=== PATIENT | male | born 1970 | race Caucasian/White ===

== ENCOUNTER 2017-04-27 14:42 | Inpatient (IN) | payer BC ==
[~2017-04-27] VITALS: Ht 165.1 cm; Wt 62.3 kg
[~2017-04-27 14:42] MED LIST: ALBU18HF INHALATION; ALBU2.5V3 NEB; AMLO-147 PO; BECL8.7A INH; IPRA3AMP HHN; LEVO500T72 PO; MED4DP PO; MONT10TA21 PO; PANT40TA3 PO; QVAR ORAL; TIOT18CA INHALATION
--- NOTE | 2017-04-27 14:58 | ERA ---
ER Documentation Chief Complaint Date/Time DATE: 04/27/17 TIME: 14:58 Chief Complaint Shortness of breath HPI The patient is a 46-year-old male, presenting to the ER because of acute shortness of breath, worse today, associated with cough and blood-tinged sputum. He denies fever, chills, neck pain, chest pain, abdominal pain, vomiting, dysuria, diarrhea. He does not smoke nor drink he does use supplemental oxygen 2-1/2 L as needed during the daytime and at night to sleep Past medical history: Asthma, COPD, hypertension Past surgical history: None ROS All systems reviewed and are negative except as per history of present illness. Medications Home Meds Active Scripts Albuterol Sulfate* (Albuterol Sulfate* Neb) 0.083%-3 Ml Neb, 2.5 MG NEB Q4H, # 30 VIAL Prov:ROMY MARAVILLA MD 10/24/16 Albuterol Sulfate* (Ventolin HFA*) 18 Gm Hfa.aer.ad, 2 PUFF INHALATION Q6H for 14 Days, #1 INHALER Prov:ROMY MARAVILLA MD 07/30/16 Reported Medications Mometasone-Formoterol (Dulera) 100-5 Mcg - 13 Gm Hfa.aer.ad, 2 PUFFS INHALATION BID, #1 INHALER 04/27/17 Amlodipine Besylate* (Amlodipine Besylate*) 10 Mg Tablet, 10 MG PO DAILY, #30 TAB 03/20/16 Tiotropium [place]* (Spiriva*) 18 Mcg Cap.w.dev, 1 CAP INHALATION BID, #30 CAP 03/20/16 Montelukast Sodium* (Singulair*) 10 Mg Tablet, 10 MG PO QHS, #30 TAB 03/20/16 Discontinued Scripts Methylprednisolone* (Medrol* DOSE PACK) 4 Mg/Dose-Pack Tab.ds.pk, 4 MG PO . DIRECTED for 14 Days, PACKET Prov:ROMY MARAVILLA MD 10/24/16 Levofloxacin* (Levaquin*) 500 Mg Tablet, 500 MG PO DAILY for 7 Days, TAB Prov:ROMY MARAVILLA MD 10/24/16 Beclomethasone Dip* (Qvar 40*) 7.3 Gm Inha, 2 PUFF INH BID, #1 INHALER Prov:ROMY MARAVILLA MD 07/30/16 Ipratropium-Albuterol (Ipratropium-Albuterol) 0.5-3 Mg/3 Ml Ampul.neb, 3 ML HHN Q6H RESP THERAPY for 28 Days Prov:ROMY MARAVILLA MD 07/30/16 [[id number]] 80 mcg No Conflict Check, 2 PUFF ORAL BID for 30 Days Prov:ROMY MARAVILLA MD 07/30/16 Pantoprazole* (Protonix*) 40 Mg Tablet.dr, 40 MG PO DAILY for 14 Days, TAB Prov:ROMY MARAVILLA MD 03/22/16 Ipratropium-Albuterol (Ipratropium-Albuterol) 0.5-3 Mg/3 Ml Ampul.neb, 3 ML HHN Q4H RESP THERAPY Y for SHORTNESS OF BREATH for 14 Days Prov:ROMY MARAVILLA MD 03/22/16 Allergies Allergies: Coded Allergies: No Known Allergy (Unverified , 04/27/17) PMhx/Soc History of Surgery: No Anesthesia Reaction: No Hx Neurological Disorder: No Hx Respiratory Disorders: Yes (COPD, asthma as a kid.) Hx Cardiac Disorders: No Hx Psychiatric Problems: No Hx Miscellaneous Medical Probl: No Hx Alcohol Use: Yes (occasional) Hx Substance Use: No Hx Tobacco Use: No Physical Exam Vitals Vital Signs Date Time Temp Pulse Resp B/P Pulse Ox O2 Delivery O2 Flow Rate FiO2 04/27/17 18:39 109 24 117/78 98 Nasal Cannula 6.0 04/27/17 17:02 115 24 126/82 96 Nasal Cannula 2.0 04/27/17 15:24 2.0 04/27/17 15:24 108 20 Nasal Cannula 2.0 04/27/17 15:10 Nasal Cannula 3 04/27/17 14:45 98.3 135 25 162/74 97 Physical Exam Const: No acute distress. Head: Atraumatic. Eyes: Normal Conjunctiva. ENT: Normal External Ears, Nose and Mouth. Neck: Full range of motion. No meningismus. Resp: Bilateral expiratory wheezes, tachypneic Cardio: Regular tachycardic Abd: Soft, non distended, normal bowel sounds, non tender. Skin: No petechiae or rashes. Back: No midline or flank tenderness. Ext: No cyanosis, or edema. Neur: Awake and alert. No focal deficit Psych: Normal Mood and Affect. Result Diagram: 04/27/17 1513 04/27/17 1513 Results 24 hrs Laboratory Tests Test 04/27/17 15:13 White Blood Count 12.110^3/ul Red Blood Count 5.2810^6/ul Hemoglobin 15.9g/dl Hematocrit 49.0% Mean Corpuscular Volume 92.8fl Mean Corpuscular Hemoglobin 30.1pg Mean Corpuscular Hemoglobin Concent 32.4g/dl Red Cell Distribution Width 14.6% Platelet Count 80186^3/UL Mean Platelet Volume 12.2fl Neutrophils % 60.2% Lymphocytes % 17.8% Monocytes % 7.1% Eosinophils % 14.4% Basophils % 0.3% Nucleated Red Blood Cells % 0.0/100WBC Neutrophils # 7.310^3/ul Lymphocytes # 2.210^3/ul Monocytes # 0.910^3/ul Eosinophils # 1.710^3/ul Basophils # 0.010^3/ul Nucleated Red Blood Cells # 0.010^3/ul Prothrombin Time 12.1Sec Prothrombin Time Ratio 0.9 INR International Normalized Ratio 0.90 Activated Partial Thromboplast Time 30.0Sec Sodium Level 139mmol/L Potassium Level 3.6mmol/L Chloride Level 97mmol/L Carbon Dioxide Level 32mmol/L Anion Gap 14 Blood Urea Nitrogen 8mg/dl Creatinine 1.02mg/dl Glucose Level 116mg/dl Lactic Acid Level 2.2mmol/L Calcium Level 9.6mg/dl Total Bilirubin 0.2mg/dl Direct Bilirubin 0.00mg/dl Indirect Bilirubin 0.2mg/dl Aspartate Amino Transf (AST/SGOT) 26IU/L Alanine Aminotransferase (ALT/SGPT) 26IU/L Alkaline Phosphatase 90IU/L Troponin I < 0.012ng/ml Total Protein 8.3g/dl Albumin 4.7g/dl Globulin 3.60g/dl Albumin/Globulin Ratio 1.30 Current Medications Medications (Trade) Dose Ordered Sig/Ramiro Route PRN Reason Start Time Stop Time Status Last Admin Dose Admin Levalbuterol (Xopenex Neb) 3.75 mg ONCE ONCE HHN 04/27/17 15:30 04/27/17 15:31 DC 04/27/17 15:24 Ipratropium [place] (Atrovent 0.02% (Neb)) 1.5 mg ONCE ONCE HHN 04/27/17 15:30 04/27/17 15:31 DC 04/27/17 15:23 Methylprednisolone Sodium Succinate 125 mg 125 mg ONCE ONCE IV 04/27/17 15:30 04/27/17 15:31 DC 04/27/17 15:32 Sodium Chloride 1,860 ml @ 1,860 mls/hr BOLUS X1 ONCE IV 04/27/17 15:30 04/27/17 16:29 DC 04/27/17 15:33 Ceftriaxone Sodium 50 ml @ 100 mls/hr ONCE ONCE IVPB 04/27/17 17:00 04/27/17 17:29 DC 04/27/17 17:02 Azithromycin (Zithromax 500mg/ NS (Pmx)) 250 ml @ 250 mls/hr ONCE ONCE IVPB 04/27/17 17:00 04/27/17 17:59 DC 04/27/17 17:53 Albuterol (Proventil 0.083% (Neb)) 2.5 mg Q4H RESP THERAPY NEB 04/27/17 21:00 04/27/17 21:00 DC Albuterol (Proventil (O.r. Use Only)) 2 puff Q6H INH 04/27/17 18:30 04/27/17 18:30 DC Amlodipine Besylate (Norvasc) 10 mg DAILY PO 04/28/17 09:00 Montelukast Sodium (Singulair) 10 mg QHS PO 04/27/17 21:00 Tiotropium [place] (Spiriva) 1 inh BID INH 04/27/17 21:00 UNV IV Flush (NS 3 ml) 3 ml PER PROTOCOL IV 04/27/17 18:30 Ondansetron HCl (Zofran Inj) 4 mg Q6H PRN IV NAUSEA AND/OR VOMITING 04/27/17 18:30 Acetaminophen (Tylenol Tab) 650 mg Q6H PRN PO PAIN LEVEL 1-3 OR FEVER 04/27/17 18:30 Docusate Sodium (Colace) 100 mg Q12H PRN PO CONSTIPATION 04/27/17 18:30 Magnesium Hydroxide (Milk Of Mag) 30 ml DAILY PRN PO CONSTIPATION 04/27/17 18:30 Pantoprazole (Protonix Tab) 40 mg DAILY@06 PO 04/28/17 06:00 Enoxaparin Sodium (Lovenox) 40 mg DAILY SC 04/28/17 09:00 Methylprednisolone Sodium Succinate (Solu-Medrol) 60 mg Q6 IV 04/28/17 00:00 Albuterol/ Ipratropium 3 ml 3 ml Q6H RESP THERAPY HHN 04/27/17 20:00 Levofloxacin/ Dextrose (Levaquin 500mg/ D5W 100 ml (Pmx)) 100 ml @ 100 mls/hr Q24H IVPB 04/27/17 18:30 04/27/17 18:30 Procedures/MDM [place] [id number] Radiology Main Line: [phone] DIAGNOSTIC IMAGING REPORT Patient: LIA CRUZ : 1970 Age: 46 Sex: M MR #: [id number] DOS: 04/27/17 1502 Ordering MD: KYLAH KELLEY MD Location: E/R Room/Bed: PROCEDURE: Chest Radiograph. CLINICAL INDICATION: Sepsis TECHNIQUE: 2 frontal views of the chest COMPARISON: None available FINDINGS: The cardiomediastinal silhouette is within normal limits. 03 lung is clear there is a suggested left basilar infiltrate. No definite pleural effusion is seen. The bones are intact. IMPRESSION: 1. Left basilar infiltrate, correlate with pneumonia, and follow up to resolution RPTAT: KK .Grayson Paredes MD, MD Date Time Electronically viewed and signed by .Grayson Paredes MD, on 2016 15:57 .B/ CC: KYLAH KELLEY MD EKG: Read by emergency physician Rate/Rhythm: Sinus tachycardia 129 beats/min QRS, ST, T-waves: No ST elevation, no T inversion, PVC, right atrial enlargement Impression: Abnormal EKG MEDICAL MAKING DECISION: The patient is a 46-year-old male, presenting with acute severe sepsis due to acute pneumonia. He was treated with normal saline 30 mL/kg IV, Rocephin IV, Zithromax IV, Ativan 1.5 mg Xopenex 3.375 mg over one hour and Solu-Medrol 125 mg IV with good response. The differential diagnoses considered include but are not limited to COPD exacerbation, asthma exacerbation, pneumonia, pneumothorax, CHF, PE Admit MDM: Patient's infectious symptoms have not stabilized and the patient is at risk of rapid decompensation. The patient will be admitted for careful hydration, antibiotic therapy, and infectious source control. Severe Sepsis criteria: Infectious source: Pneumonia End organ damage indicated by: Lactate > 2.0 mmol/L Sepsis Management: Time of recognition of severe sepsis/septic shock:15:30 hr Within 3 hours of recognition: Blood cultures x 2 before broad-spectrum antibiotics: Yes 30 ml/kg NS bolus completed Initial lactate 2.2 Repeat lactate pending Critical Care: Critical care time 35 minutes Emergent fluid management while maintaining close respiratory support. Provision of immediate and broad-spectrum antibiotic therapy. Simultaneous assessment for possible sources in order to direct targeted therapy. Consideration for invasive and chemical support to prevent cardiopulmonary collapse. Septic Shock Assessment: Any lactic acid > 4.0 no Persistent hypotension (SBP < 90 or 40 mmHg drop, MAP < 65) despite 30 mL/kg IV fluid bolusno Departure Diagnosis: Primary Impression: Severe sepsis Additional Impression: Pneumonia Condition: Stable Comments I discussed the findings with the patient. I discussed the patient with his physician Dr. Maravilla who was made aware of the lab, the treatment, the patient condition. The patient is admitted to telemetry at 5:40 pm KYLAH KELLEY MD Apr 27, 2017 14:58
[2017-04-27] MEDS ORDERED: MOME13HF2 INHALATION (15:24)
[2017-04-27] MEDS ORDERED: SOD CHLORIDE 0.9% 1,860 ML IV ONE (15:30)
[2017-04-27] MEDS ORDERED: LEVALBUTEROL (NEB) 1.25 MG/0.5 ML AMP HHN ONE (15:30)
[2017-04-27] MEDS ORDERED: IPRATROPIUM (NEB) 0.5 MG/2.5 ML AMP HHN ONE (15:30)
[2017-04-27] MEDS ORDERED: METHYLPREDNISOLONE 125 MG INJ IV ONE (15:30)
[2017-04-27 15:48] LABS: ADD SCAN DIFF NO
[2017-04-27 15:50] LABS: BASOPHILS % 0.3 % (0.0-2.0); EOSINOPHILS # 1.7 10^3/ul (0.0-0.5); EOSINOPHILS % 14.4 % (0.0-7.0); HEMOGLOBIN 15.9 g/dl (14.0-18.0); LYMPHOCYTES # 2.2 10^3/ul (0.8-2.9); LYMPHOCYTES % 17.8 % (15.0-51.0); MEAN CORPUSCULAR HEMOGLOBIN 30.1 pg (29.0-33.0); MEAN CORPUSCULAR HGB CONC 32.4 g/dl (32.0-37.0); MEAN CORPUSCULAR VOLUME 92.8 fl (82.0-101.0); MEAN PLATELET VOLUME 12.2 fl (7.4-10.4); MONOCYTE # 0.9 10^3/ul (0.3-0.9); MONOCYTES % 7.1 % (0.0-11.0); NEUTROPHIL # 7.3 10^3/ul (1.6-7.5); NEUTROPHILS % 60.2 % (39.0-77.0); PLATELET COUNT 211 10^3/UL (140-415); RED BLOOD COUNT 5.28 10^6/ul (4.70-6.10); RED CELL DISTRIBUTION WIDTH 14.6 % (11.5-14.5); WHITE BLOOD COUNT 12.1 10^3/ul (4.8-10.8)
--- NOTE | 2017-04-27 15:57 | RADRPT ---
PROCEDURE: Chest Radiograph. CLINICAL INDICATION: Sepsis TECHNIQUE: 2 frontal views of the chest COMPARISON: None available FINDINGS: The cardiomediastinal silhouette is within normal limits. 03 lung is clear there is a suggested lef t basilar infiltrate. No definite pleural effusion is seen. The bones are intact. IMPRESSION: 1. Left basilar infiltrate, correlate with pneumonia, and follow up to resolution RPTAT: KK .Grayson Paredes MD, MD Date Time Electronically viewed and signed by .Grayson Paredes MD, on 04/27/2017 15:57 .B/
[2017-04-27 16:05] LABS: INR 0.9; PROTIME 12.1 Sec (12.2-14.2); PT RATIO 0.9
[2017-04-27 16:10] LABS: ALANINE AMINOTRANSFERASE 26 IU/L (13-69); ALBUMIN 4.7 g/dl (3.3-4.9); ALKALINE PHOSPHATASE 90 IU/L (42-121); ANION GAP 14 (8-16); ASPARTATE AMINO TRANSFERASE 26 IU/L (15-46); BILIRUBIN,INDIRECT 0.2 mg/dl (0-1.1); BILIRUBIN,TOTAL 0.2 mg/dl (0.2-1.3); BLOOD UREA NITROGEN 8 mg/dl (7-20); CALCIUM 9.6 mg/dl (8.4-10.2); CARBON DIOXIDE 32 mmol/L (21-31); CHLORIDE 97 mmol/L (97-110); CREATININE 1.02 mg/dl (0.61-1.24); GLUCOSE 116 mg/dl (70-220); POTASSIUM 3.6 mmol/L (3.5-5.1); SODIUM 139 mmol/L (135-144); TOTAL PROTEIN 8.3 g/dl (6.1-8.1)
[2017-04-27 16:27] LABS: TROPONIN-I < 0.012 ng/ml (0.00-0.12)
[2017-04-27] MEDS ORDERED: AZITHROMYCIN 500MG/NS (PMX) 250 ML IVPB ONE (17:00)
[2017-04-27] MEDS ORDERED: CEFTRIAXONE 1 GM/50 ML (PMX) 50 ML IVPB ONE (17:00)
[2017-04-27] MEDS ORDERED: NACL 0.9% 3 ML SYG IV SCH (18:30)
[2017-04-27] MEDS ORDERED: DOCUSATE SODIUM 100 MG CAP PO PRN (18:30)
[2017-04-27] MEDS ORDERED: MAGNESIUM HYDROXIDE 30ML CUP PO PRN (18:30)
[2017-04-27] MEDS ORDERED: PROVENTIL HFA 6.7GM INHALER INH SCH (18:30)
[2017-04-27] MEDS: LEVOFLOXACIN 500MG/D5W (PMX) 100 ML IVPB SCH (18:30)
[2017-04-27] MEDS ORDERED: ONDANSETRON 4 MG INJ IV PRN (18:30)
[2017-04-27] MEDS ORDERED: ACETAMINOPHEN 325 MG TAB PO PRN (18:30)
[2017-04-27] MEDS: ALBUTEROL/IPRATROPIUM (NEB) 3 ML AMP HHN SCH (20:47)
[2017-04-27] MEDS ORDERED: ALBUTEROL 0.083% (NEB) 2.5 MG/3 ML AMP NEB SCH (21:00)
[2017-04-27] MEDS: TIOTROPIUM 18 MCG CAPSULE INHA DEV INH SCH (22:04)
[2017-04-27] MEDS: MONTELUKAST 10 MG TAB PO SCH (22:11)
[2017-04-27] MEDS: METHYLPREDNISOLONE 125 MG INJ IV SCH (23:20)
--- NOTE | 2017-04-27 23:32 | QN ---
Documentation Comment [id number] ROMY MARAVILLA MD Apr 27, 2017 23:32
[2017-04-28] VITALS (8 sets, daily range): BP systolic 115–137; BP diastolic 64–79; PULSE 80–100; RESP 17–20; TEMP 99; Ht 165.1 cm; Wt 62.3 kg
[2017-04-28] MEDS: ALBUTEROL/IPRATROPIUM (NEB) 3 ML AMP HHN SCH ×4 (01:36→20:56)
[2017-04-28] MEDS ORDERED: SOD CHLORIDE 0.9% 1,000 ML IV ONE (02:00)
[2017-04-28] MEDS: SOD CHLORIDE 0.9% 1,000 ML IV SCH ×3 (03:00→23:00)
[2017-04-28] MEDS: METHYLPREDNISOLONE 125 MG INJ IV SCH ×3 (05:57→17:55)
[2017-04-28] MEDS: PANTOPRAZOLE (EC) 40 MG TAB PO SCH (05:57)
--- NOTE | 2017-04-28 07:27 | HP ---
DATE OF ADMISSION: 04/27/2017 HISTORY OF PRESENT ILLNESS: Armen Hutchison is a 46-year-old male with history of asthma exacerbation, COPD, presented with shortness of breath, cough. He was seen in the ER and noted to have cough, lung congestion and patient is being admitted for further management. PAST MEDICAL HISTORY: COPD, bronchial asthma. Patient has hypertension. ALLERGY HISTORY: NEGATIVE. FAMILY HISTORY: Negative. SOCIAL HISTORY: Negative. MEDICATIONS AT HOME: 1. Albuterol. 2. Amlodipine. 3. hhn 4. Singulair. 5. Spiriva. REVIEW OF HEENT: Unremarkable. RESPIRATORY: Shortness of breath, cough, wheezing. CARDIOVASCULAR: No chest pain. . ABDOMEN: Dyspepsia. EXTREMITIES: . CENTRAL NERVOUS SYSTEM: Unremarkable. PHYSICAL EXAMINATION: GENERAL: The patient is awake, alert. VITAL SIGNS: Pulse normal, _ blood pressure see flow sheet. HEAD: Atraumatic, normocephalic. Pupils equal, reactive to light. NECK: Supple. No JVD. LUNGS: Rhonchi and wheezes noted, some crepitation at bases. CARDIOVASCULAR: S1, S2 normal. ABDOMEN: Soft. Bowel sounds present. No palpable mass. EXTREMITIES: No cyanosis, clubbing, or edema. CENTRAL NERVOUS SYSTEM: The patient is awake, alert, no focal deficit. LABORATORY DATA: WBC 12.1. The patient had a chest x-ray done, shows left basilar infiltrate. IMPRESSION: 1. The patient has ba execerbation 2. Chronic obstructive pulmonary disease exacerbation. 3. lung infiltrate. 4. Leukocytosis. PLAN: Continue oxygen, bronchodilator and antibiotics and _ orders were done. Dictated By: ROMY CARMEN/NTS Conf#: [id number] DID#: [id number] MTDD
[2017-04-28] MEDS: ENOXAPARIN 40 MG/0.4 ML SYG SC SCH (11:00)
[2017-04-28] MEDS: AMLODIPINE 10 MG TAB PO SCH (11:29)
[2017-04-28] MEDS: TIOTROPIUM 18 MCG CAPSULE INHA DEV INH SCH ×2 (11:31→21:21)
[2017-04-28] MEDS: LEVOFLOXACIN 500MG/D5W (PMX) 100 ML IVPB SCH (17:56)
[2017-04-28] MEDS: MONTELUKAST 10 MG TAB PO SCH (21:20)
--- NOTE | 2017-04-28 22:50 | PN ---
Date/Time of Note Date/Time of Note DATE: 04/28/17 TIME: 22:49 Assessment/Plan VTE Prophylaxis VTE Prophylaxis Intervention: other Lines/Catheters Urinary Cath still in place: No Assessment/Plan Chief Complaint/Hosp Course IMPRESSION: 1. The patient has ba execerbation 2. Chronic obstructive pulmonary disease exacerbation. 3. lung infiltrate. 4. Leukocytosis. 5 lactic adidosis plan hhn Problems: Subjective 24 Hr Interval Summary Respiratory: shortness of breath (less) Cardiovascular: no complaints Gastrointestinal: no complaints Exam/Review of Systems Vital Signs Vitals Vital Signs Date Time Temp Pulse Resp B/P Pulse Ox O2 Delivery O2 Flow Rate FiO2 04/28/17 20:59 92 18 95 Nasal Cannula 2.0 28 04/28/17 20:00 98.0 115/64 Intake and Output 04/27/17 04/27/17 04/28/17 15:00 23:00 07:00 Intake Total 300 ml Balance 300 ml Exam Neck: supple Respiratory: clear to auscultation Cardiovascular: regular rate and rhythm Gastrointestinal: nl liver, spleen, non-tender, soft Extremities: edema Results Result Diagram: 04/27/17 1513 04/27/17 1513 Results 24 hrs Laboratory Tests Test 04/27/17 23:56 Lactic Acid Level 5.4 *H Medications Medications Current Medications Amlodipine Besylate (Norvasc) 10 mg DAILY PO Last administered on 04/28/17 11: 29; Admin Dose 10 MG; Start 04/28/17 at 09:00 Montelukast Sodium (Singulair) 10 mg QHS PO Last administered on 04/28/17 21: 20; Admin Dose 10 MG; Start 04/27/17 at 21:00 Tiotropium [place] (Spiriva) 1 inh BID INH Last administered on 04/28/17 21:21 ; Admin Dose 1 INH; Start 04/27/17 at 21:00 Ondansetron HCl (Zofran Inj) 4 mg Q6H PRN IV NAUSEA AND/OR VOMITING; Start at 18:30 Acetaminophen (Tylenol Tab) 650 mg Q6H PRN PO PAIN LEVEL 1-3 OR FEVER; Start at 18:30 Docusate Sodium (Colace) 100 mg Q12H PRN PO CONSTIPATION; Start 04/27/17 at 18: 30 Magnesium Hydroxide (Milk Of Mag) 30 ml DAILY PRN PO CONSTIPATION; Start at 18:30 Pantoprazole (Protonix Tab) 40 mg DAILY@06 PO Last administered on 04/28/17 05 :57; Admin Dose 40 MG; Start 04/28/17 at 06:00 Enoxaparin Sodium (Lovenox) 40 mg DAILY SC ; Start 04/28/17 at 09:00 Methylprednisolone Sodium Succinate 60 mg 60 mg Q6 IV Last administered on 04/28 17:55; Admin Dose 60 MG; Start 04/28/17 at 00:00 Levofloxacin/ Dextrose 100 ml @ 100 mls/hr Q24H IVPB Last administered on 04/28 17:56; Admin Dose 100 MLS/HR; Start 04/27/17 at 18:30 Sodium Chloride (NS) 1,000 ml @ 125 mls/hr Q8H IV Last administered on 11:36; Admin Dose 125 MLS/HR; Start 04/28/17 at 03:00 ROMY MARAVILLA MD Apr 28, 2017 22:50
[2017-04-29] VITALS (12 sets, daily range): BP systolic 108–136; BP diastolic 57–92; PULSE 76–108; RESP 18–21
[2017-04-29] MEDS: METHYLPREDNISOLONE 125 MG INJ IV SCH ×5 (00:07→23:25)
[2017-04-29] MEDS: ZOLPIDEM 5 MG TAB PO PRN ×2 (00:07→23:24)
[2017-04-29] MEDS: ALBUTEROL/IPRATROPIUM (NEB) 3 ML AMP HHN SCH ×4 (02:17→19:35)
[2017-04-29] MEDS: SOD CHLORIDE 0.9% 1,000 ML IV SCH ×3 (03:00→19:00)
[2017-04-29] MEDS: PANTOPRAZOLE (EC) 40 MG TAB PO SCH (05:24)
[2017-04-29] MEDS: ENOXAPARIN 40 MG/0.4 ML SYG SC SCH (07:51)
[2017-04-29] MEDS: TIOTROPIUM 18 MCG CAPSULE INHA DEV INH SCH ×2 (07:53→21:30)
[2017-04-29] MEDS: AMLODIPINE 10 MG TAB PO SCH (07:54)
[2017-04-29] MEDS ORDERED: HYDROCODONE/APAP (5/325) TAB PO PRN (12:00)
[2017-04-29] MEDS: LEVOFLOXACIN 500MG/D5W (PMX) 100 ML IVPB SCH (17:23)
[2017-04-29] MEDS: MONTELUKAST 10 MG TAB PO SCH (20:52)
--- NOTE | 2017-04-29 23:32 | PN ---
Date/Time of Note Date/Time of Note DATE: 04/29/17 TIME: 23:31 Assessment/Plan VTE Prophylaxis VTE Prophylaxis Intervention: other Lines/Catheters IV Catheter Type (from Nrs): Peripheral IV Urinary Cath still in place: No Assessment/Plan Chief Complaint/Hosp Course IMPRESSION: 1. The patient has ba execerbation 2. Chronic obstructive pulmonary disease exacerbation. 3. lung infiltrate. 4. Leukocytosis. 5 lactic adidosis plan hhn antibiotic Problems: Subjective 24 Hr Interval Summary Respiratory: shortness of breath (better) Exam/Review of Systems Vital Signs Vitals Vital Signs Date Time Temp Pulse Resp B/P Pulse Ox O2 Delivery O2 Flow Rate FiO2 04/29/17 20:17 98.2 114 21 133/92 96 04/29/17 20:10 Nasal Cannula 2.0 04/29/17 02:52 28 Intake and Output 04/28/17 04/28/17 04/29/17 15:00 23:00 07:00 Intake Total 1850 ml 750 ml Balance 1850 ml 750 ml Exam Neck: supple Respiratory: clear to auscultation Cardiovascular: regular rate and rhythm Gastrointestinal: soft Results Result Diagram: 04/27/17 1513 04/27/17 1513 Medications Medications Current Medications Amlodipine Besylate (Norvasc) 10 mg DAILY PO Last administered on 04/29/17 07: 54; Admin Dose 10 MG; Start 04/28/17 at 09:00 Montelukast Sodium (Singulair) 10 mg QHS PO Last administered on 04/29/17 20: 52; Admin Dose 10 MG; Start 04/27/17 at 21:00 Tiotropium [place] (Spiriva) 1 inh BID INH Last administered on 04/29/17 21:30 ; Admin Dose 1 INH; Start 04/27/17 at 21:00 Ondansetron HCl (Zofran Inj) 4 mg Q6H PRN IV NAUSEA AND/OR VOMITING; Start at 18:30 Acetaminophen (Tylenol Tab) 650 mg Q6H PRN PO PAIN LEVEL 1-3 OR FEVER Last administered on 04/29/17 07:53; Admin Dose 650 MG; Start 04/27/17 at 18:30 Docusate Sodium (Colace) 100 mg Q12H PRN PO CONSTIPATION; Start 04/27/17 at 18: 30 Magnesium Hydroxide (Milk Of Mag) 30 ml DAILY PRN PO CONSTIPATION; Start at 18:30 Pantoprazole (Protonix Tab) 40 mg DAILY@06 PO Last administered on 04/29/17 05 :24; Admin Dose 40 MG; Start 04/28/17 at 06:00 Enoxaparin Sodium (Lovenox) 40 mg DAILY SC ; Start 04/28/17 at 09:00 Methylprednisolone Sodium Succinate 60 mg 60 mg Q6 IV Last administered on 04/29 23:25; Admin Dose 60 MG; Start 04/28/17 at 00:00 Levofloxacin/ Dextrose 100 ml @ 100 mls/hr Q24H IVPB Last administered on 04/29 17:23; Admin Dose 100 MLS/HR; Start 04/27/17 at 18:30 Sodium Chloride (NS) 1,000 ml @ 125 mls/hr Q8H IV Last administered on 10:48; Admin Dose 125 MLS/HR; Start 04/28/17 at 03:00 Zolpidem Tartrate (Ambien) 5 mg HS PRN PO INSOMNIA Last administered on 23:24; Admin Dose 5 MG; Start 04/29/17 at 00:00 Acetaminophen/ Hydrocodone Bitart ([place] (5/325)) 1 tab Q6H PRN PO PAIN LEVEL 4 -7 Last administered on 04/29/17 12:51; Admin Dose 1 TAB; Start 04/29/17 at 12: 00 ROMY MARAVILLA MD Apr 29, 2017 23:32
[2017-04-30] VITALS (12 sets, daily range): BP systolic 109–146; BP diastolic 61–85; PULSE 79–107; RESP 18–20
[2017-04-30] MEDS: ALBUTEROL/IPRATROPIUM (NEB) 3 ML AMP HHN SCH ×4 (02:17→20:33)
[2017-04-30] MEDS: SOD CHLORIDE 0.9% 1,000 ML IV SCH ×3 (02:20→21:09)
[2017-04-30] MEDS: PANTOPRAZOLE (EC) 40 MG TAB PO SCH (05:30)
[2017-04-30] MEDS: METHYLPREDNISOLONE 125 MG INJ IV SCH ×3 (05:31→18:00)
[2017-04-30] MEDS: ENOXAPARIN 40 MG/0.4 ML SYG SC SCH (08:24)
[2017-04-30] MEDS: AMLODIPINE 10 MG TAB PO SCH (08:28)
[2017-04-30] MEDS ORDERED: ALBUTEROL/IPRATROPIUM (NEB) 3 ML AMP HHN PRN (11:30)
--- NOTE | 2017-04-30 11:56 | PN ---
Date/Time of Note Date/Time of Note DATE: 04/30/17 TIME: 11:51 Assessment/Plan VTE Prophylaxis VTE Prophylaxis Intervention: ambulation Lines/Catheters IV [facility]): Peripheral IV Urinary Cath still in place: No Assessment/Plan Chief Complaint/Hosp Course 1. The patient has lung infiltrate 2. Chronic obstructive pulmonary disease exacerbation. 3. lung infiltrate. 4. Leukocytosis. 5. Lactic acidosis Problems: Assessment/Plan 1. Continue a/b Subjective 24 Hr Interval Summary Constitutional: improved, no complaints Exam/Review of Systems Vital Signs Vitals Vital Signs Date Time Temp Pulse Resp B/P Pulse Ox O2 Delivery O2 Flow Rate FiO2 04/30/17 11:31 98.1 101 20 127/85 96 04/30/17 09:30 Nasal Cannula 2.0 04/29/17 02:52 28 Intake and Output 04/29/17 04/29/17 04/30/17 15:00 23:00 07:00 Intake Total 1900 ml 2750 ml Balance 1900 ml 2750 ml Exam Constitutional: alert, oriented Respiratory: clear to auscultation Cardiovascular: regular rate and rhythm Gastrointestinal: soft Results Result Diagram: 04/27/17 1513 04/27/17 1513 Results 24 hrs Laboratory Tests Test 04/30/17 05:55 Lactic Acid Level 3.2 H Medications Medications Current Medications Amlodipine Besylate (Norvasc) 10 mg DAILY PO Last administered on 04/30/17 08: 28; Admin Dose 10 MG; Start 04/28/17 at 09:00 Montelukast Sodium (Singulair) 10 mg QHS PO Last administered on 04/29/17 20: 52; Admin Dose 10 MG; Start 04/27/17 at 21:00 Tiotropium [place] (Spiriva) 1 inh BID INH Last administered on 04/29/17 21:30 ; Admin Dose 1 INH; Start 04/27/17 at 21:00 Ondansetron HCl (Zofran Inj) 4 mg Q6H PRN IV NAUSEA AND/OR VOMITING; Start at 18:30 Acetaminophen (Tylenol Tab) 650 mg Q6H PRN PO PAIN LEVEL 1-3 OR FEVER Last administered on 04/29/17 07:53; Admin Dose 650 MG; Start 04/27/17 at 18:30 Docusate Sodium (Colace) 100 mg Q12H PRN PO CONSTIPATION; Start 04/27/17 at 18: 30 Magnesium Hydroxide (Milk Of Mag) 30 ml DAILY PRN PO CONSTIPATION; Start at 18:30 Pantoprazole (Protonix Tab) 40 mg DAILY@06 PO Last administered on 04/30/17 05 :30; Admin Dose 40 MG; Start 04/28/17 at 06:00 Enoxaparin Sodium (Lovenox) 40 mg DAILY SC ; Start 04/28/17 at 09:00 Methylprednisolone Sodium Succinate 60 mg 60 mg Q6 IV Last administered on 04/30 05:31; Admin Dose 60 MG; Start 04/28/17 at 00:00 Levofloxacin/ Dextrose 100 ml @ 100 mls/hr Q24H IVPB Last administered on 04/29 17:23; Admin Dose 100 MLS/HR; Start 04/27/17 at 18:30 Sodium Chloride (NS) 1,000 ml @ 125 mls/hr Q8H IV Last administered on 02:20; Admin Dose 125 MLS/HR; Start 04/28/17 at 03:00 Zolpidem Tartrate (Ambien) 5 mg HS PRN PO INSOMNIA Last administered on 23:24; Admin Dose 5 MG; Start 04/29/17 at 00:00 Acetaminophen/ Hydrocodone Bitart ([place] (5/325)) 1 tab Q6H PRN PO PAIN LEVEL 4 -7 Last administered on 04/29/17 12:51; Admin Dose 1 TAB; Start 04/29/17 at 12: 00 MILAGROS ACKERMAN Apr 30, 2017 11:56
[2017-04-30] MEDS: TIOTROPIUM 18 MCG CAPSULE INHA DEV INH SCH ×2 (13:29→21:09)
[2017-04-30] MEDS: LEVOFLOXACIN 500MG/D5W (PMX) 100 ML IVPB SCH (18:01)
[2017-04-30] MEDS: MONTELUKAST 10 MG TAB PO SCH (21:09)
[2017-05-01] VITALS (8 sets, daily range): BP systolic 125–136; BP diastolic 64–74; PULSE 78–94; RESP 20
[2017-05-01] MEDS: ALBUTEROL/IPRATROPIUM (NEB) 3 ML AMP HHN SCH ×3 (02:40→14:11)
[2017-05-01] MEDS: SOD CHLORIDE 0.9% 1,000 ML IV SCH ×3 (03:00→12:11)
[2017-05-01] MEDS: METHYLPREDNISOLONE 125 MG INJ IV SCH ×3 (05:26→12:11)
[2017-05-01] MEDS: PANTOPRAZOLE (EC) 40 MG TAB PO SCH (05:26)
[2017-05-01 07:11] LABS: ADD SCAN DIFF NO
[2017-05-01 07:26] LABS: BASOPHILS % 0.1 % (0.0-2.0); HEMATOCRIT 43.3 % (42.0-52.0); HEMOGLOBIN 14.2 g/dl (14.0-18.0); LYMPHOCYTES # 0.7 10^3/ul (0.8-2.9); LYMPHOCYTES % 5.4 % (15.0-51.0); MEAN CORPUSCULAR HEMOGLOBIN 30.2 pg (29.0-33.0); MEAN CORPUSCULAR HGB CONC 32.8 g/dl (32.0-37.0); MEAN CORPUSCULAR VOLUME 92.1 fl (82.0-101.0); MEAN PLATELET VOLUME 12.2 fl (7.4-10.4); MONOCYTE # 0.8 10^3/ul (0.3-0.9); MONOCYTES % 6.8 % (0.0-11.0); NEUTROPHIL # 10.6 10^3/ul (1.6-7.5); NEUTROPHILS % 86.9 % (39.0-77.0); PLATELET COUNT 187 10^3/UL (140-415); RED CELL DISTRIBUTION WIDTH 14.4 % (11.5-14.5); WHITE BLOOD COUNT 12.1 10^3/ul (4.8-10.8)
[2017-05-01 07:46] LABS: CALCIUM 8.6 mg/dl (8.4-10.2); CREATININE 0.69 mg/dl (0.61-1.24); POTASSIUM 3.6 mmol/L (3.5-5.1)
[2017-05-01] MEDS: ENOXAPARIN 40 MG/0.4 ML SYG SC SCH (09:00)
[2017-05-01] MEDS: TIOTROPIUM 18 MCG CAPSULE INHA DEV INH SCH (10:29)
[2017-05-01] MEDS: AMLODIPINE 10 MG TAB PO SCH (10:29)
--- NOTE | 2017-05-01 14:59 | PN ---
Date/Time of Note Date/Time of Note DATE: 05/01/17 TIME: 14:58 Assessment/Plan VTE Prophylaxis VTE Prophylaxis Intervention: ambulation Lines/Catheters IV [facility] Peripheral IV Urinary Cath still in place: No Assessment/Plan Chief Complaint/Hosp Course 1. The patient has lung infiltrate 2. Chronic obstructive pulmonary disease exacerbation. 3. lung infiltrate. 4. Leukocytosis. 5. Lactic acidosis Problems: Assessment/Plan 1. Continue A.b 2. ID consult Subjective 24 Hr Interval Summary Subjective hx not possible: pt non-verbal Cardiovascular: no complaints Gastrointestinal: no complaints Genitourinary: no complaints Exam/Review of Systems Vital Signs Vitals Vital Signs Date Time Temp Pulse Resp B/P Pulse Ox O2 Delivery O2 Flow Rate FiO2 05/01/17 14:12 2.0 05/01/17 14:11 96 20 99 05/01/17 11:18 97.4 126/71 05/01/17 07:54 Nasal Cannula 04/29/17 02:52 28 Intake and Output 04/30/17 04/30/17 05/01/17 14:59 22:59 06:59 Intake Total 2100 ml Balance 2100 ml Exam Constitutional: alert, oriented Respiratory: clear to auscultation Cardiovascular: regular rate and rhythm Gastrointestinal: soft Results Result Diagram: 05/01/17 0630 05/01/17 0630 Results 24 hrs Laboratory Tests Test 05/01/17 06:30 White Blood Count 12.1 H Red Blood Count 4.70 Hemoglobin 14.2 Hematocrit 43.3 Mean Corpuscular Volume 92.1 Mean Corpuscular Hemoglobin 30.2 Mean Corpuscular Hemoglobin Concent 32.8 Red Cell Distribution Width 14.4 Platelet Count 187 Mean Platelet Volume 12.2 H Neutrophils % 86.9 H Lymphocytes % 5.4 L Monocytes % 6.8 Eosinophils % 0.0 Basophils % 0.1 Nucleated Red Blood Cells % 0.0 Neutrophils # 10.6 H Lymphocytes # 0.7 L Monocytes # 0.8 Eosinophils # 0.0 Basophils # 0.0 Nucleated Red Blood Cells # 0.0 Sodium Level 139 Potassium Level 3.6 Chloride Level 103 Carbon Dioxide Level 28 Anion Gap 12 Blood Urea Nitrogen 12 Creatinine 0.69 Glucose Level 113 Calcium Level 8.6 Medications Medications Current Medications Amlodipine Besylate (Norvasc) 10 mg DAILY PO Last administered on 05/01/17t 10: 29; Admin Dose 10 MG; Start 04/28/17 at 09:00 Montelukast Sodium (Singulair) 10 mg QHS PO Last administered on 04/30/17 21: 09; Admin Dose 10 MG; Start 04/27/17 at 21:00 Tiotropium [place] (Spiriva) 1 inh BID INH Last administered on 05/01/17 10:29 ; Admin Dose 1 INH; Start 04/27/17 at 21:00 Ondansetron HCl (Zofran Inj) 4 mg Q6H PRN IV NAUSEA AND/OR VOMITING; Start at 18:30 Acetaminophen (Tylenol Tab) 650 mg Q6H PRN PO PAIN LEVEL 1-3 OR FEVER Last administered on 04/29/17 07:53; Admin Dose 650 MG; Start 04/27/17 at 18:30 Docusate Sodium (Colace) 100 mg Q12H PRN PO CONSTIPATION; Start 04/27/17 at 18: 30 Magnesium Hydroxide (Milk Of Mag) 30 ml DAILY PRN PO CONSTIPATION; Start at 18:30 Pantoprazole (Protonix Tab) 40 mg DAILY@06 PO Last administered on 05/01/17 05 :26; Admin Dose 40 MG; Start 04/28/17 at 06:00 Enoxaparin Sodium (Lovenox) 40 mg DAILY SC ; Start 04/28/17 at 09:00 Methylprednisolone Sodium Succinate 60 mg 60 mg Q6 IV Last administered on 05/01 12:11; Admin Dose 60 MG; Start 04/28/17 at 00:00 Levofloxacin/ Dextrose 100 ml @ 100 mls/hr Q24H IVPB Last administered on 04/30 18:01; Admin Dose 100 MLS/HR; Start 04/27/17 at 18:30 Sodium Chloride (NS) 1,000 ml @ 125 mls/hr Q8H IV Last administered on 12:11; Admin Dose 125 MLS/HR; Start 04/28/17 at 03:00 Zolpidem Tartrate (Ambien) 5 mg HS PRN PO INSOMNIA Last administered on 23:24; Admin Dose 5 MG; Start 04/29/17 at 00:00 Acetaminophen/ Hydrocodone Bitart ([place] (5/325)) 1 tab Q6H PRN PO PAIN LEVEL 4 -7 Last administered on 04/29/17t 12:51; Admin Dose 1 TAB; Start 04/29/17 at 12: 00 MILAGROS ACKERMAN May 01, 2017 14:59
--- NOTE | 2017-05-01 17:51 | PDOCDIS ---
Discharge Instructions CONDITION Patient Condition: Stable HOME CARE INSTRUCTIONS: Special Diet: LOW FAT/ LOW CHOL ACTIVITY: Activity Restrictions: Slowly Increase Activity FOLLOW UP/APPOINTMENTS Follow-up Plan see own pcp 1 wk ROMY MARAVILLA MD May 01, 2017 17:51
[2017-05-01] MEDS ORDERED: IPRA3AMP HHN (17:56)
[2017-05-01] MEDS ORDERED: TIOT18CA INHALATION (17:56)
[2017-05-01] MEDS ORDERED: LEVO500T72 PO (17:56)
[2017-05-01] MEDS ORDERED: ALBU2.5V3 NEB (17:56)
[2017-05-01] MEDS ORDERED: PANT40TA4 PO (17:56)
[2017-05-01] MEDS ORDERED: MED4DP PO (17:56)
--- NOTE | 2017-05-01 18:02 | RADRPT ---
PROCEDURE: XR Chest. CLINICAL INDICATION: Severe sepsis. TECHNIQUE: AP view of the chest was obtained. COMPARISON: 04/27/2017 FINDINGS: The cardiomediastinal silhouette is within normal limits. There is improved aeration of the left low er lobe, with minimal residual linear stranding. The remaining left lung is normally aerated. No si gns of pleural fluid or pneumothorax are seen. The osseous structures and soft tissues are unremarka ble. IMPRESSION: 1. Improving left lower lobe infiltrates with minimal residual stranding in the left lower lobe. RPTAT: HGAS .Toi Colon MD, Date Time Electronically viewed and signed by .Toi Colon MD, on 05/01/2017 18:01 .S/
--- NOTE | 2017-05-01 18:16 | CONS ---
DATE OF ADMISSION: 04/27/2017 DATE OF CONSULTATION: 05/01/2017 TYPE OF CONSULTATION: Infectious Disease. REASON FOR CONSULTATION: Antibiotic management. HISTORY OF PRESENT ILLNESS: Armen Hutchison is a 46-year-old male with history of asthma, COPD, wh o comes in with shortness of breath, cough and is being seen for antibiotic management. Past problems include COPD, asthma and hypertension. On admission, his white count was 12.1, H and H of 15.9 and 49, platelet count of 211,000. On the , white count was 12.1. BUN and creatinine 12/0.69. Blood cultures are negative. Chest x-ray shows left basilar infiltrate correlate with pn eumonia. Patient was begun on methylprednisolone and was started on Levaquin. As noted, his white count was 12.1. PAST MEDICAL HISTORY: Operations as outlined. FAMILY HISTORY: Noncontributory. SOCIAL HISTORY: Does not smoke, drink or abuse drugs. ALLERGIES: NONE TO PENICILLIN, SULFA OR FOODS. MEDICATIONS: Per chart. REVIEW OF SYSTEMS: As per HPI. PHYSICAL EXAMINATION: GENERAL: The patient is a well-developed, well-nourished male who is alert, responsive, in no acute distress. VITAL SIGNS: Stable. He is afebrile. SKIN: Without generalized rash. HEENT: Within normal limits. NECK: Supple. LYMPH NODES: None palpable. CHEST: Decreased breath sounds at the bases with occasional rhonchi. HEART: Without murmur or gallop. ABDOMEN: Soft, nontender, without organosplenomegaly or masses. EXTREMITIES: Without cyanosis, clubbing, or edema. RECTAL AND GENITAL: Deferred. NEUROLOGIC: No focal neurological abnormalities. IMPRESSION AND PLAN: The patient comes in now with chronic obstructive pulmonary disease, asthma an d has a left basilar infiltrate, started on Levaquin. We will continue him on this regimen for the time being. His blood cultures are negative. We will get a sputum for C and S. I will dictate my f indings to Dr. Al. Dictated By: CATALINA RAMÍREZ MD, JD/LAKE Conf#: [id number] DID#: [id number]
[2017-05-01] MEDS ORDERED: METHYLPREDNISOLONE 125 MG INJ IV SCH (21:00)
== END 2017-05-01 20:00 | disposition home or self-care (01) | DRG 191 ==
LOC: E/R 14:42 → TEL 17:40
PROVIDERS: ADMIT Internal Medicine Nephrology; ATTEND Internal Medicine Nephrology
DX: J44.1 Chronic obstructive pulmonary disease with (acute) exacerbation (principal); E87.2 Acidosis; R91.8 Other nonspecific abnormal finding of lung field; D72.829 Elevated white blood cell count, unspecified
CPT/HCPCS: 36415; 71010; 80048; 80053; 83605; 84484; 85025; 85610; 85730; 87040; 93005; 94640; 94644; 94664; 96365; 96366; 96368; 96375; J0456; J0696; J1650; J1956; J2930; J7030

== ENCOUNTER 2017-07-06 17:53 | Inpatient (IN) | payer BC ==
[~2017-07-06] VITALS: Ht 165.1 cm; Wt 65.4 kg
[~2017-07-06 17:53] MED LIST changes: -BECL8.7A INH; +MOME13HF2 INHALATION; -PANT40TA3 PO; +PANT40TA4 PO; -QVAR ORAL
[2017-07-06 20:30] VITALS: BP 133/79; PULSE 98; RESP 18
[2017-07-06] MEDS ORDERED: ACETAMINOPHEN 325 MG TAB PO PRN (21:30)
[2017-07-06] MEDS ORDERED: HYDROCODONE/APAP (5/325) TAB PO PRN (21:30)
[2017-07-06] MEDS ORDERED: ONDANSETRON 4 MG INJ IV PRN (21:30)
[2017-07-06 21:54] VITALS: Ht 165.1 cm; Wt 65.4 kg
[2017-07-06] MEDS: FAMOTIDINE 20 MG TAB PO SCH (22:20)
[2017-07-07] VITALS (31 sets, daily range): BP systolic 93–156; BP diastolic 49–92; PULSE 70–157; RESP 10–32
[2017-07-07] MEDS: IPRATROPIUM (NEB) 0.5 MG/2.5 ML AMP HHN PRN ×4 (02:10→07:34)
[2017-07-07] MEDS: ALBUTEROL 0.083% (NEB) 2.5 MG/3 ML AMP HHN PRN ×3 (02:10→07:12)
[2017-07-07] MEDS ORDERED: IPRATROPIUM (NEB) 0.5 MG/2.5 ML AMP HHN SCH ×5 (04:00→14:00)
[2017-07-07] MEDS ORDERED: ALBUTEROL 0.083% (NEB) 2.5 MG/3 ML AMP HHN SCH ×4 (04:00→09:00)
[2017-07-07] MEDS: LEVOFLOXACIN 750MG/D5W (PMX) 150 ML IVPB SCH (04:03)
[2017-07-07] MEDS ORDERED: CEPASTAT LOZENGE MT PRN (04:30)
[2017-07-07] MEDS: GUAIFENESIN/DM 5ML CUP PO PRN ×2 (04:59→07:45)
[2017-07-07 06:33] LABS: BASOPHILS % 0.1 % (0.0-2.0); EOSINOPHILS # 0.1 10^3/ul (0.0-0.5); EOSINOPHILS % 0.7 % (0.0-7.0); HEMATOCRIT 45.2 % (42.0-52.0); HEMOGLOBIN 14.9 g/dl (14.0-18.0); LYMPHOCYTES % 16.9 % (15.0-51.0); MEAN CORPUSCULAR HEMOGLOBIN 31.2 pg (29.0-33.0); MEAN CORPUSCULAR VOLUME 94.8 fl (82.0-101.0); MEAN PLATELET VOLUME 11.8 fl (7.4-10.4); MONOCYTE # 1.1 10^3/ul (0.3-0.9); NEUTROPHILS % 72.9 % (39.0-77.0); POSITIVE DIFF @See below; RED BLOOD COUNT 4.77 10^6/ul (4.70-6.10); RED CELL DISTRIBUTION WIDTH 13.6 % (11.5-14.5); WHITE BLOOD COUNT 11.9 10^3/ul (4.8-10.8)
[2017-07-07 06:43] LABS: PLATELET COUNT 131 10^3/UL (140-415)
[2017-07-07] MEDS ORDERED: METHYLPREDNISOLONE 125 MG INJ ONE (06:57)
[2017-07-07] MEDS ORDERED: METHYLPREDNISOLONE 125 MG INJ IV ONE (07:00)
[2017-07-07 07:11] LABS: CALCIUM 9.2 mg/dl (8.4-10.2); CREATININE 0.76 mg/dl (0.61-1.24); POTASSIUM 3.8 mmol/L (3.5-5.1)
[2017-07-07 07:17] LABS: AADO2 Arterial 130.4 mmHg (7.0-24.0); Allen Test ACCEPTAB; Arterial Base Excess -4.4 mmol/L (-3.0-3); Arterial COHb 0.3 % (0.0-3.0); Arterial Fraction of Oxyhgb 95.4 % (93.0-99.0); Arterial MetHb 0.4 % (0.0-1.5); MODE MASK - SIMPLE
[2017-07-07] MEDS ORDERED: LEVALBUTEROL (NEB) 1.25 MG/0.5 ML AMP HHN PRN (07:30)
[2017-07-07] MEDS: FAMOTIDINE 20 MG TAB PO SCH ×2 (07:46→21:40)
--- NOTE | 2017-07-07 08:04 | PN ---
Date/Time of Note Date/Time of Note DATE: 07/07/17 TIME: 07:57 Assessment/Plan VTE Prophylaxis VTE Prophylaxis Intervention: LMWH Lines/Catheters IV Catheter Type (from Nrsg): Saline Lock Assessment/Plan Chief Complaint/Hosp Course 46 y/o with # COPD exacerbation with diffuse wheezing and respiratory distress # Hypercarbic respiratory failure # Tachycardia # HTN Recs - Levoalbuterol/Atrovent - Solumedrol Iv - Mg sulphate - Stat ABG again after breathhing treatments Chest Xray - Iv Levaquin - Condition guarded - GI/DVT prophylaxsis Problems: Subjective 24 Hr Interval Summary Free Text/Dictation +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 before transferred to ICU Exam/Review of Systems Vital Signs Vitals Vital Signs Date Time Temp Pulse Resp B/P Pulse Ox O2 Delivery O2 Flow Rate FiO2 07/07/17 07:47 140 07/07/17 07:35 25 99 Aerosol 6.0 07/07/17 06:55 156/92 07/07/17 01:53 97.9 Intake and Output 07/06/17 07/06/17 07/07/17 15:00 23:00 07:00 Intake Total 390 ml Output Total 200 ml Balance 190 ml Results Gen:Awake,alert in resp distress NECK:supple Lungs:diffuse expiratory wheezing in all fiewlds Abdomen:soft, non tender Ext: no edema Result Diagram: 07/07/17 0558 07/07/17 0558 Results 24 hrs Laboratory Tests Test 07/07/17 05:58 07/07/17 06:56 07/07/17 06:57 White Blood Count 11.9 H Red Blood Count 4.77 Hemoglobin 14.9 Hematocrit 45.2 Mean Corpuscular Volume 94.8 Mean Corpuscular Hemoglobin 31.2 Mean Corpuscular Hemoglobin Concent 33.0 Red Cell Distribution Width 13.6 Platelet Count 131 #L Mean Platelet Volume 11.8 H Neutrophils % 72.9 Lymphocytes % 16.9 Monocytes % 9.0 Eosinophils % 0.7 Basophils % 0.1 Nucleated Red Blood Cells % 0.0 Neutrophils # (Manual) 8.7 H Lymphocytes # 2.0 Monocytes # 1.1 H Eosinophils # 0.1 Basophils # 0.0 Nucleated Red Blood Cells # 0.0 Sodium Level 145 H Potassium Level 3.8 Chloride Level 103 Carbon Dioxide Level 28 Anion Gap 18 H Blood Urea Nitrogen 11 Creatinine 0.76 Glucose Level 106 Calcium Level 9.2 Bedside Glucose 117 Blood Gas Specimen Source Blood arterial Arterial Blood Date Drawn 07/07/2017 7:05:46 AM Arterial Blood pH (Temp corrected) 7.149 *L Arterial Blood pCO2 (Temp correct) 79.6 H Arterial Blood pO2 (Temp corrected) 99.9 Arterial Blood HCO3 27.0 H Arterial Blood Base Excess -4.4 L Arterial Blood Oxygen Saturation 96.1 Frandy Test ACCEPTAB Arterial Blood Gas Puncture Site Right Radial Arterial Blood Carboxyhemoglobin 0.3 Arterial Blood Methemoglobin 0.4 Blood Gas A-a O2 Differential 130.4 H Oxyhemoglobin Percent 95.4 Total Hemoglobin 17.0 Blood Gas Temperature 37.0 Blood Gas Modality MASK - SIMPLE FiO2 45.0 Blood Gas Critical Value Read Back Yue HAMMER RN Blood Gas Notified Whom SHAHZAD Blood Gas Notified Time 07/07/2017 7:14:39 AM Medications Medications Current Medications Methylprednisolone Sodium Succinate 60 mg 60 mg DAILY IV ; Start 07/07/17 at 09: 00 Levofloxacin/ Dextrose (Levaquin 750 Mg/ D5W 150 ml (Pmx)) 150 ml @ 100 mls/hr Q24H IVPB Last administered on 07/07/17 04:03; Admin Dose 100 MLS/HR; Start at 04:00 Acetaminophen (Tylenol Tab) 650 mg Q6H PRN PO PAIN AND OR ELEVATED TEMP; Start 07/06/17 at 21:30 Ondansetron HCl (Zofran Inj) 4 mg Q4H PRN IV NAUSEA AND/OR VOMITING; Start at 21:30 Acetaminophen/ Hydrocodone Bitart ([place] (5/325)) 1 tab Q4H PRN PO PAIN LEVEL 7 -10; Start 07/06/17 at 21:30 Famotidine (Pepcid) 20 mg BID PO Last administered on 07/07/17 07:46; Admin Dose 20 MG; Start 07/06/17 at 21:30 Phenol (Cepastat Lozenge) 1 lozenge Q4H PRN MT COUGH Last administered on 06:07; Admin Dose 1 LOZENGE; Start 07/07/17 at 04:30 Guaifenesin/ Dextromethorphan 5 ml 5 ml Q4H PRN PO COUGH Last administered on t 07:45; Admin Dose 5 ML; Start 07/07/17 at 04:30 Magnesium Sulfate (Magnesium Sulfate 2 Gm/50 ml) 50 ml @ 25 mls/hr ONCE ONCE IVPB ; Start 07/07/17 at 09:00; Stop 07/07/17 at 10:59 ELAYNE MCCLOUD MD Jul 07, 2017 08:04
[2017-07-07] MEDS ORDERED: ALBUTEROL HFA 8 GM INHALER INH SCH (08:30)
[2017-07-07] MEDS: AMLODIPINE 10 MG TAB PO SCH (08:45)
--- NOTE | 2017-07-07 08:45 | RADRPT ---
PROCEDURE: XR Chest. CLINICAL INDICATION: Shortness of breath TECHNIQUE: AP Portable chest. COMPARISON: 05/01/2017 FINDINGS: The cardiomediastinal silhouette is normal. The aorta is normal. No focal consolidation, pleural eff usion or pneumothorax is seen. The osseous structures are intact. IMPRESSION: No radiographic evidence of acute cardiopulmonary disease. Physician Omer Date Time Electronically viewed and signed by Yuki Mejia Physician on 07/07/2017 08:45 CS/
--- NOTE | 2017-07-07 08:50 | HP ---
DATE OF ADMISSION: 07/06/2017 REASON FOR ADMISSION: COPD, transferred from [facility]. HISTORY OF PRESENT ILLNESS: This is a 46-year-old male with a past medical history of COPD for many years, hypertension, history of multiple admissions in the past for COPD exacerbation, was transferred from [facility], [facility] ER for COPD exacerbation. According to the patient, he is on Spiriva, Dulera and albuterol, but has been running out of meds and he has been trying to get them. For the last 1 week, he has been having worsening shortness of breath requiring use of albuterol almost every hour. Today he felt very short of breath, so he went to the he went to [facility] ER. The patient complained of cough. Denied any fever or chills. Increased sputum production. No orthopnea or PND, lower extremity edema. In the ED at [facility], patient had poor air movement, unable to speak full sentences and requiring 15 L high-flow. He was given 125 mg of methylprednisolone, 2 g of mag and Levaquin and chest x-ray was negative and continuous nebs/. The patient was transferred to [facility] for contracted insurance. PAST MEDICAL HISTORY: 1. COPD. 2. Hypertension. ALLERGIES: NONE. MEDICATIONS: Taking at home: 1. Loratadine 10 mg p.o. q.day 2. Albuterol. 3. Ventolin. 4. Spiriva. 5. Amlodipine. 6. Beclomethasone. 7. Singulair. 8. Protonix. FAMILY HISTORY: Negative. SOCIAL HISTORY: Used to be smoker. Denies any history of alcohol or any drug use. REVIEW OF SYSTEMS: HEENT: Unremarkable. RESPIRATORY: Short of breath, cough. CARDIOVASCULAR: Denies any chest pain, any orthopnea or PND, lower extremity edema. ABDOMEN: Denies any nausea, vomiting, diarrhea, hematemesis, or melena. EXTREMITIES: Denies any edema. SKIN: Denies any rash. NEUROLOGIC: Denies any focal neuro deficits. PHYSICAL EXAMINATION: VITAL SIGNS: Temperature is afebrile, pulse 90 respirations 18, blood pressure 156/92, saturating 99 percent on 2 L nasal cannula. GENERAL: Patient is awake, alert, oriented, appears to be in mild respiratory distress. NECK: Supple. No JVD. HEART: Tachycardic. LUNGS: Diffuse expiratory wheezing throughout heard in both lung queen. ABDOMEN: Soft, nontender, nondistended. Positive bowel sounds. EXTREMITIES: No clubbing, cyanosis, or edema. DIAGNOSTIC DATA: BMP is sodium 145, potassium 3.8, chloride 103, bicarb 28, BUN of 11, creatinine 0.76, glucose 117. White count of 11.9, hemoglobin 14.9, platelet count 131. Chest x-ray from [facility] was negative for any acute infiltrate. ASSESSMENT: This is a 46-year-old male presenting with: 1. Chronic obstructive pulmonary disease exacerbation. Could be due to noncompliance, worsening disease. 2. Shortness of breath secondary to #1. 3. Tachycardia. Could be because of the nebs. 4. Hypertension. PLAN: At this period of time, patient has been already admitted to med/surg unit. Patient will be on breathing treatments around the clock. We will continue the patient on Solu-Medrol 125. We will give the patient IV Levaquin. We will get ABG and chest x- ray. GI and DVT prophylaxis .rest of the treatment depends on the patient's hospitalization course. Dictated By: MD ERICK Altman/marielena/ana /Document#: [id number]
[2017-07-07] MEDS ORDERED: LEVALBUTEROL (NEB) 1.25 MG/0.5 ML AMP HHN SCH ×2 (09:00→14:00)
[2017-07-07] MEDS ORDERED: MAGNESIUM SULFATE 2 GM/50 ML 50 ML IVPB ONE (09:00)
[2017-07-07] MEDS ORDERED: METHYLPREDNISOLONE 125 MG INJ IV SCH (09:00)
[2017-07-07] MEDS ORDERED: ALBUTEROL 0.083% (NEB) 2.5 MG/3 ML AMP NEB SCH (09:00)
[2017-07-07] MEDS: ENOXAPARIN 40 MG/0.4 ML SYG SC SCH ×2 (09:00→09:59)
[2017-07-07] MEDS: IPRATROPIUM (NEB) 0.5 MG/2.5 ML AMP HHN SCH ×3 (13:00→20:55)
[2017-07-07] MEDS: LEVALBUTEROL (NEB) 1.25 MG/0.5 ML AMP HHN SCH ×3 (13:00→20:55)
[2017-07-07 15:19] LABS: AADO2 Arterial 38.8 mmHg (7.0-24.0); Allen Test ACCEPTAB; Arterial Base Excess -1.2 mmol/L (-3.0-3); Arterial COHb 0.3 % (0.0-3.0); Arterial Fraction of Oxyhgb 96.4 % (93.0-99.0); Arterial HCO3 25.1 mmol/L (22.0-26.0); Arterial MetHb 0.3 % (0.0-1.5); Arterial Total Hemglobin 15.5 g/dl (12.0-18.0); MODE NASAL CANNULA
--- NOTE | 2017-07-07 16:08 | CONS ---
DATE OF ADMISSION: 07/06/2017 DATE OF CONSULTATION: 07/07/2017 REASON FOR CONSULTATION: Shortness of breath. Thank you, Dr. Al, for this consultation. HISTORY OF PRESENT ILLNESS: This is a patient 46-year-old gentleman with a history of COPD, per patient, who presents with several day history of increasing shortness of breath, orthopnea, PND, this morning had marked hypoxemia requiring transfer to intensive care unit. Now, he is somewhat improved with improved respiratory status. Denies any chest pain or palpitations. He is an ex-smoker, quit smoking several months ago, but has been intermittently smoking periodically. PAST MEDICAL HISTORY: As above. MEDICATIONS: Per chart. ALLERGIES: NONE. SOCIAL HISTORY: Positive tobacco history. No alcohol. No history of drug use. FAMILY HISTORY: Noncontributory. REVIEW OF SYSTEMS: A 12-point review of systems is negative other than that mentioned above. PHYSICAL EXAMINATION: GENERAL: On examination, well-nourished, well-developed gentleman, comfortable at rest, talking in full and complete sentences. VITAL SIGNS: Currently afebrile. Pulse is 100, blood pressure 110/60, O2 sat 96 percent, FiO2 of 15 liters. NECK: Supple. No JVD. No lymphadenopathy. HEART: S1, S2. No added sounds or murmurs. CHEST: Diminished air entry bilaterally. ABDOMEN: Soft, nontender. No guarding or rebound. EXTREMITIES: No clubbing, cyanosis or edema. NEUROLOGIC: Generalized weakness. LABORATORY DATA: White count 11.9, hemoglobin 14.9, platelets of 131. BUN 11, creatinine 0.79. Initial ABG, pH 7.14, pCO2 of 79, pAO2 of 99, bicarb 27. Chest x-ray was reviewed, shows no infiltrates or effusions. EKG showed no acute ischemic changes. IMPRESSION: 1. Chronic obstructive pulmonary disease with acute exacerbation. 2. Acute hypercapnic respiratory failure. 3. Unlikely to be thromboembolic disease. 4. History of hypertension. PLAN: 1. Continue steroids. 2. Continue bronchodilator. 3. Continue antibiotics for possible community-acquired pneumonia. 4. DVT and GI prophylaxis. Dictated By: Lisandro Hayes MD /marielena/tomi /Document#: [id number]
[2017-07-07] MEDS: METHYLPREDNISOLONE 125 MG INJ IV SCH (18:09)
[2017-07-08] VITALS (25 sets, daily range): BP systolic 86–132; BP diastolic 45–92; PULSE 67–115; RESP 14–27
[2017-07-08] MEDS: METHYLPREDNISOLONE 125 MG INJ IV SCH ×4 (01:09→20:48)
[2017-07-08] MEDS: IPRATROPIUM (NEB) 0.5 MG/2.5 ML AMP HHN SCH ×6 (01:43→21:01)
[2017-07-08] MEDS: LEVALBUTEROL (NEB) 1.25 MG/0.5 ML AMP HHN SCH ×6 (01:43→21:01)
[2017-07-08] MEDS: LEVOFLOXACIN 750MG/D5W (PMX) 150 ML IVPB SCH (04:00)
[2017-07-08 07:34] LABS: CREATININE 0.75 mg/dl (0.61-1.24); PHOSPHORUS 2.7 mg/dl (2.5-4.9); POTASSIUM 4.4 mmol/L (3.5-5.1)
[2017-07-08] MEDS: AMLODIPINE 10 MG TAB PO SCH (08:33)
[2017-07-08] MEDS: FAMOTIDINE 20 MG TAB PO SCH ×2 (08:33→20:48)
[2017-07-08] MEDS: ENOXAPARIN 40 MG/0.4 ML SYG SC SCH ×2 (08:35→10:00)
--- NOTE | 2017-07-08 08:41 | PN ---
Date/Time of Note Date/Time of Note DATE: 07/08/17 TIME: 08:38 Assessment/Plan VTE Prophylaxis VTE Prophylaxis Intervention: LMWH Lines/Catheters [facility] Saline Lock Urinary Cath still in place: No Assessment/Plan Chief Complaint/Hosp Course 46 y/o with # COPD exacerbation with diffuse wheezing and respiratory distress # Hypercarbic respiratory failure improved on ABG # Tachycardia resolved # HTN controlled Recs - Levoalbuterol/Atrovent - Solumedrol Iv q6>Q12 - Ok to Transfer to Telemetry - Iv Levaquin - GI/DVT prophylaxsis - Pt needs to follow Pulmonary as OPD - Advised to quit smoking Problems: Subjective 24 Hr Interval Summary Free Text/Dictation Feels a lot better today SOB has improved markedly Exam/Review of Systems Vital Signs Vitals Vital Signs Date Time Temp Pulse Resp B/P Pulse Ox O2 Delivery O2 Flow Rate FiO2 07/08/17 06:00 86 20 100/70 97 Nasal Cannula 2.0 07/08/17 04:40 27 07/08/17 04:00 98.0 Intake and Output 07/07/17 07/07/17 07/08/17 15:00 23:00 07:00 Intake Total 150 ml 620 ml 600 ml Output Total 490 ml 1120 ml 175 ml Balance -340 ml -500 ml 425 ml Exam Gen:awake, alert, not in any respiratory distress Neck:supple Lungs: few expiratory wheezes in both lung fiels Abdomen:soft, non tender Ext : no edema Results Result Diagram: 07/07/17 0558 07/08/17 0655 Results 24 hrs Laboratory Tests Test 07/07/17 15:00 07/08/17 06:55 Blood Gas Specimen Source Blood arterial Arterial Blood Date Drawn 07/07/2017 3:00:25 PM Arterial Blood pH (Temp corrected) 7.336 L Arterial Blood pCO2 (Temp correct) 48.1 H Arterial Blood pO2 (Temp corrected) 96.8 Arterial Blood HCO3 25.1 Arterial Blood Base Excess -1.2 Arterial Blood Oxygen Saturation 97.0 Frandy Test ACCEPTAB Arterial Blood Gas Puncture Site Right Radial Arterial Blood Carboxyhemoglobin 0.3 Arterial Blood Methemoglobin 0.3 Blood Gas A-a O2 Differential 38.8 H Oxyhemoglobin Percent 96.4 Total Hemoglobin 15.5 Blood Gas Temperature 37.0 Blood Gas Modality NASAL CANNULA FiO2 27.0 Blood Gas Notified Whom JLD Blood Gas Notified Time 07/07/2017 3:19:52 PM Sodium Level 138 Potassium Level 4.4 Chloride Level 98 Carbon Dioxide Level 29 Anion Gap 15 Blood Urea Nitrogen 15 Creatinine 0.75 Glucose Level 182 Calcium Level 9.0 Phosphorus Level 2.7 Medications Medications Current Medications Levofloxacin/ Dextrose (Levaquin 750 Mg/ D5W 150 ml (Pmx)) 150 ml @ 100 mls/hr Q24H IVPB Last administered on 07/08/17 04:00; Admin Dose 100 MLS/HR; Start at 04:00 Acetaminophen (Tylenol Tab) 650 mg Q6H PRN PO PAIN AND OR ELEVATED TEMP; Start 07/06/17 at 21:30 Ondansetron HCl (Zofran Inj) 4 mg Q4H PRN IV NAUSEA AND/OR VOMITING; Start at 21:30 Acetaminophen/ Hydrocodone Bitart ([place] (5/325)) 1 tab Q4H PRN PO PAIN LEVEL 7 -10; Start 07/06/17 at 21:30 Famotidine (Pepcid) 20 mg BID PO Last administered on 07/08/17 08:33; Admin Dose 20 MG; Start 07/06/17 at 21:30 Phenol (Cepastat Lozenge) 1 lozenge Q4H PRN MT COUGH Last administered on 06:07; Admin Dose 1 LOZENGE; Start 07/07/17 at 04:30 Guaifenesin/ Dextromethorphan (Robitussin Dm Liquid Cup) 5 ml Q4H PRN PO COUGH Last administered on 07/07/17 07:45; Admin Dose 5 ML; Start 07/07/17 at 04:30 Enoxaparin Sodium (Lovenox) 40 mg DAILY SC Last administered on 07/08/17 08:35 ; Admin Dose 40 MG; Start 07/07/17 at 09:00 Amlodipine Besylate (Norvasc) 10 mg DAILY PO Last administered on 07/08/17 08: 33; Admin Dose 10 MG; Start 07/07/17 at 09:00 Methylprednisolone Sodium Succinate (Solu-Medrol) 60 mg Q6 IV Last administered on 07/08/17 06:33; Admin Dose 60 MG; Start 07/07/17 at 18:00 ELAYNE MCCLOUD MD Jul 08, 2017 08:41
--- NOTE | 2017-07-08 13:24 | PN ---
DATE: 07/08/2017 SUBJECTIVE DATA: The patient is considerably improved this morning. Awake, alert, and oriented. Denies any shortness of breath. No chest pain or palpitations. V OBJECTIVE DATA: VITAL SIGNS: Temperature 98, pulse 80, blood pressure 121/91, O2 sat 96 percent on 2 L nasal cannula. NECK: Supple. No JVD or lymphadenopathy. HEART: S1, S2. No added sounds or murmurs. CHEST: Diminished air entry bilaterally. ABDOMEN: Soft, nontender. No guarding or rebound. EXTREMITIES: No cyanosis, clubbing, edema. NEUROLOGIC: Grossly intact. No focal deficits. LABORATORY AND DIAGNOSTIC DATA: White count yesterday was 11.9. Chemistry this morning within normal limits. Arterial blood gas showed resolution of hypercapnic respiratory failure. ASSESSMENT AND PLAN: 1. Chronic obstructive pulmonary disease with acute exacerbation. 2. Status post hypoxemic and hypercapnic respiratory failure. 3. Prior history of significant tobacco use. PLAN: 1. Transfer to telemetry. 2. Slow steroid taper. 3. Continue Levaquin. 4. Continue bronchodilators. 5. Outpatient pulmonary function testing, and follow up with me if insurance allows. Dictated By: Lisandro Hayes MD /marielena/ec /Document#: [id number]
[2017-07-09] VITALS (10 sets, daily range): BP systolic 114–145; BP diastolic 60–82; PULSE 72–109; RESP 15–20
[2017-07-09] MEDS: IPRATROPIUM (NEB) 0.5 MG/2.5 ML AMP HHN SCH ×5 (01:13→16:09)
[2017-07-09] MEDS: LEVALBUTEROL (NEB) 1.25 MG/0.5 ML AMP HHN SCH ×5 (01:13→16:09)
[2017-07-09] MEDS: LEVOFLOXACIN 750MG/D5W (PMX) 150 ML IVPB SCH (04:30)
[2017-07-09] MEDS: ENOXAPARIN 40 MG/0.4 ML SYG SC SCH (08:36)
[2017-07-09] MEDS: AMLODIPINE 10 MG TAB PO SCH (08:37)
[2017-07-09] MEDS: METHYLPREDNISOLONE 125 MG INJ IV SCH (08:37)
[2017-07-09] MEDS: FAMOTIDINE 20 MG TAB PO SCH (08:37)
[2017-07-09] MEDS ORDERED: predniSONE 20 MG TAB PO SCH (09:30)
--- NOTE | 2017-07-09 13:14 | CONS ---
Date/Time of Note Date/Time of Note DATE: 07/09/17 TIME: 13:12 Assessment/Plan Assessment/Plan Additional Assessment/Plan Assessment and recommendations; 1. Admitted with severe COPD exacerbation and acute bronchitis with hypercapnic respiratory failure with marked overall clinical improvement. 2. Prior history of asthma. 3. Patient is a current smoker. Agree with discharge. Patient needs to completely quit smoking. He has had pneumococcal vaccine recently. Consultation Date/Type/Reason Admit Date/Time Jul 06, 2017 at 20:17 Initial Consult Date Type of Consultation: Pulmonary 24 HR Interval Summary Free Text/Dictation Patient's condition is markedly improved. Denies any coughing, chest pain, wheezing, sputum production. General exam; young male, awake alert currently in no distress. Walking in the room. Exam/Review of Systems Vital Signs Vitals Vital Signs Date Time Temp Pulse Resp B/P Pulse Ox O2 Delivery O2 Flow Rate FiO2 07/09/17 12:15 92 07/09/17 12:11 20 98 Nasal Cannula 2.0 07/09/17 12:00 98.2 114/60 07/08/17 21:23 27 Intake and Output 07/08/17 07/08/17 07/09/17 15:00 23:00 07:00 Intake Total 1070 ml 860 ml Output Total 900 ml 400 ml Balance 170 ml 460 ml Exam HEENT exam; supple neck, no JVD. No lymphadenopathy. Midline trachea. No thyromegaly. Pharynx is clear. Patient has fair dentition. Chest exam; diminished but clear breath sounds. S1-S2 audible, no murmurs. Regular rhythm. Abdomen exam; soft, no organomegaly. Nontender. Bowel sounds audible. Extremity exam; no peripheral edema. 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 Results Result Diagram: 07/07/17 0558 07/08/17 0655 Medications Medications Current Medications Levofloxacin/ Dextrose (Levaquin 750 Mg/ D5W 150 ml (Pmx)) 150 ml @ 100 mls/hr Q24H IVPB Last administered on 07/09/17t 04:30; Admin Dose 100 MLS/HR; Start at 04:00 Acetaminophen (Tylenol Tab) 650 mg Q6H PRN PO PAIN AND OR ELEVATED TEMP; Start 07/06/17 at 21:30 Ondansetron HCl (Zofran Inj) 4 mg Q4H PRN IV NAUSEA AND/OR VOMITING; Start at 21:30 Acetaminophen/ Hydrocodone Bitart ([place] (5/325)) 1 tab Q4H PRN PO PAIN LEVEL 7 -10; Start 07/06/17 at 21:30 Famotidine (Pepcid) 20 mg BID PO Last administered on 07/09/17 08:37; Admin Dose 20 MG; Start 07/06/17 at 21:30 Phenol (Cepastat Lozenge) 1 lozenge Q4H PRN MT COUGH Last administered on 06:07; Admin Dose 1 LOZENGE; Start 07/07/17 at 04:30 Guaifenesin/ Dextromethorphan (Robitussin Dm Liquid Cup) 5 ml Q4H PRN PO COUGH Last administered on 07/07/17 07:45; Admin Dose 5 ML; Start 07/07/17 at 04:30 Enoxaparin Sodium (Lovenox) 40 mg DAILY SC ; Start 07/07/17 at 09:00 Amlodipine Besylate (Norvasc) 10 mg DAILY PO Last administered on 07/09/17 08: 37; Admin Dose 10 MG; Start 07/07/17 at 09:00 Prednisone (Prednisone) 60 mg DAILY PO Last administered on 07/09/17 10:32; Admin Dose 60 MG; Start 07/09/17 at 09:30 NICOLE OVIEDO Jul 09, 2017 13:14
--- NOTE | 2017-07-09 14:16 | PN ---
Date/Time of Note Date/Time of Note DATE: 07/09/17 TIME: 14:15 Assessment/Plan VTE Prophylaxis VTE Prophylaxis Intervention: ambulation Lines/Catheters [facility] Saline Lock Urinary Cath still in place: No Assessment/Plan Chief Complaint/Hosp Course 1. COPD exacerbation with diffuse wheezing and respiratory distress 2. Hypercarbic respiratory failure improved on ABG 3. Tachycardia resolved 4. HTN, controlled Problems: Assessment/Plan 1. D/c pending 2. Pt has a/b home 3. taper down hormones Subjective 24 Hr Interval Summary Constitutional: improved ENT: no complaints Respiratory: no complaints Cardiovascular: no complaints Gastrointestinal: no complaints Exam/Review of Systems Vital Signs Vitals Vital Signs Date Time Temp Pulse Resp B/P Pulse Ox O2 Delivery O2 Flow Rate FiO2 07/09/17 12:15 92 07/09/17 12:11 20 98 Nasal Cannula 2.0 07/09/17 12:00 98.2 114/60 07/08/17 21:23 27 Intake and Output 07/08/17 07/08/17 07/09/17 15:00 23:00 07:00 Intake Total 1070 ml 860 ml Output Total 900 ml 400 ml Balance 170 ml 460 ml Exam Constitutional: alert, oriented Respiratory: clear to auscultation Cardiovascular: regular rate and rhythm Results Result Diagram: 07/07/17 0558 07/08/17 0655 Medications Medications Current Medications Levofloxacin/ Dextrose (Levaquin 750 Mg/ D5W 150 ml (Pmx)) 150 ml @ 100 mls/hr Q24H IVPB Last administered on 07/09/17 04:30; Admin Dose 100 MLS/HR; Start at 04:00 Acetaminophen (Tylenol Tab) 650 mg Q6H PRN PO PAIN AND OR ELEVATED TEMP; Start 07/06/17 at 21:30 Ondansetron HCl (Zofran Inj) 4 mg Q4H PRN IV NAUSEA AND/OR VOMITING; Start at 21:30 Acetaminophen/ Hydrocodone Bitart ([place] (5/325)) 1 tab Q4H PRN PO PAIN LEVEL 7 -10; Start 07/06/17 at 21:30 Famotidine (Pepcid) 20 mg BID PO Last administered on 07/09/17 08:37; Admin Dose 20 MG; Start 07/06/17 at 21:30 Phenol (Cepastat Lozenge) 1 lozenge Q4H PRN MT COUGH Last administered on 06:07; Admin Dose 1 LOZENGE; Start 07/07/17 at 04:30 Guaifenesin/ Dextromethorphan (Robitussin Dm Liquid Cup) 5 ml Q4H PRN PO COUGH Last administered on 07/07/17 07:45; Admin Dose 5 ML; Start 07/07/17 at 04:30 Enoxaparin Sodium (Lovenox) 40 mg DAILY SC ; Start 07/07/17 at 09:00 Amlodipine Besylate (Norvasc) 10 mg DAILY PO Last administered on 07/09/17 08: 37; Admin Dose 10 MG; Start 07/07/17 at 09:00 Prednisone (Prednisone) 60 mg DAILY PO Last administered on 07/09/17 10:32; Admin Dose 60 MG; Start 07/09/17 at 09:30 MILAGROS ACKERMAN Jul 09, 2017 14:16
--- NOTE | 2017-07-09 14:19 | PDOCDIS ---
Discharge Instructions DIAGNOSIS Discharge Diagnosis COPD exacerbation Hypertension, controlled CONDITION Patient Condition: Good HOME CARE INSTRUCTIONS: Diet Instructions: Low Fat /Cholesterol ACTIVITY: Activity Restrictions: Slowly Increase Activity FOLLOW UP/APPOINTMENTS Follow-up Plan 1 week PCP MILAGROS ACKERMAN Jul 09, 2017 14:19
[2017-07-09] MEDS ORDERED: UDROBDM PO (14:23)
--- NOTE | 2017-07-09 14:28 | PDOCDIS ---
Discharge Instructions DIAGNOSIS Discharge Diagnosis COPD exacerbation Hypertension, controlled CONDITION Patient Condition: Good HOME CARE INSTRUCTIONS: Diet Instructions: Low Fat /Cholesterol ACTIVITY: Activity Restrictions: Slowly Increase Activity FOLLOW UP/APPOINTMENTS Follow-up Plan 1. Outpatient pulmonary function testing, 2. Follow up with MILAGROS Obrien Jul 09, 2017 14:28
[2017-07-09] MEDS ORDERED: MOME13HF INHALATION (14:38)
[2017-07-09] MEDS ORDERED: PRED20TA PO ×2 (14:38→14:55)
[2017-07-09] MEDS ORDERED: LEVA1.2523 HHN (14:38)
[2017-07-09] MEDS ORDERED: TIOT18CA INHALATION (14:39)
[2017-07-09] MEDS ORDERED: ALBU2.5V3 NEB (14:40)
[2017-07-09] MEDS ORDERED: ALBU90AE INHALATION (14:42)
--- NOTE | 2017-07-10 13:21 | DS ---
Date/Time of Note Date/Time of Note DATE: 07/10/17 TIME: 13:15 Discharge Summary Admission/Discharge Info Admit Date/Time Jul 06, 2017 at 20:17 Discharge Date/Time Jul 09, 2017 at 19:09 Discharge Diagnosis COPD exacerbation Hypertension, controlled Patient Condition: Good Consults Dr Hayes, pulmonary Procedures none Hx of Present Illness 46-year-old male with a past medical history of COPD for many years, hypertension, history of multiple admissions in the past for COPD exacerbation, was transferred from [facility] for COPD exacerbation. According to the patient, he is on Spiriva, Dulera and albuterol, but has been running out of medications and he has been trying to get them. For the last week before hospitalization, he has been having worsening shortness of breath requiring use of albuterol almost every hour. On the first day of admission he felt very short of breath, was admitted to ICU. Oxygen therapy, IV hormone therapy and breathing treatment had been started. Next day pt reported decrease SOB. Xray of the chest is negative. Dr Hayes closely manage pt and slowly taper his doses of the solumedrol. Pt was transferred to Med/Surg unit. He got stabilized and discharged home with prescription of his home medications. Hospital Course 1. COPD exacerbation with diffuse wheezing and respiratory distress 2. Hypercarbic respiratory failure improved on ABG 3. Tachycardia resolved 4. HTN, controlled Home Meds Active Scripts Prednisone* (Prednisone*) 20 Mg Tab, 5 MG PO DAILY for 5 Days, #46 TAB 07/10/17 50 mg PO daily, 10 tabs 07/11/17 40 mg PO daily, 8 tabs 07/12/17 30 mg PO daily, 6 tabs 07/11/17 30 mg po daily, 6 tabs 07/12/17 30 mg po daily, 6 tabs 07/13/17 20 mg po daily, 4 tabs 07/14/17 15 mg po daily, 3 tabs 07/15/17 10 mg po daily, 2 tabs 07/14/17 5 mg po daily, 1 tab 07/15/2017 none Prov:MILAGROS ACKERMAN 07/09/17 Albuterol Sulfate (Proair Respiclick) 90 Mcg Aer.pow.ba, 2 PUFFS INHALATION BID Y for SHORTNESS OF BREATH for 30 Days, BOTTLE Prov:MILAGROS ACKERMAN 07/09/17 Albuterol Sulfate* (Albuterol Sulfate* Neb) 0.083%-3 Ml Neb, 2.5 MG NEB Q4H, # 30 VIAL Prov:MILAGROS ACKERMAN 07/09/17 Tiotropium [place]* (Spiriva*) 18 Mcg Cap.w.dev, 1 CAP INHALATION DAILY, #30 CAP Prov:MARISAAMARJITMILAGROS WREN 07/09/17 Mometasone-Formoterol (Dulera) 200-5 Mcg/Inh - 13 Gm Hfa.aer.ad, 2 PUFFS INHALATION BID, #1 INHALER Prov:MILAGROS ACKERMAN 07/09/17 Levalbuterol Hcl* (Xopenex*) 1.25 Mg/0.5 Ml Vial.neb, 1.25 MG HHN Q4H RESP THERAPY for 30 Days Prov:MILAGROS ACKERMAN 07/09/17 Guaifenesin-Dextromethorphan* (Robitussin* DM) 100MG/10MG/5ML Syrup, 5 ML PO Q4H Y for COUGH for 14 Days Prov:MILAGROS ACKERMAN 07/09/17 Methylprednisolone* (Medrol* DOSE PACK) 4 Mg/Dose-Pack Tab.ds.pk, 4 MG PO . DIRECTED for 10 Days, PACKET Prov:ROMY MARAVILLA MD 05/01/17 Levofloxacin* (Levaquin*) 500 Mg Tablet, 500 MG PO DAILY for 10 Days, TAB Prov:ROMY MARAVILLA MD 05/01/17 Pantoprazole* (Pantoprazole*) 40 Mg Tablet.dr, 40 MG PO DAILY@06 for 28 Days Prov:ROMY MARAVILLA MD 05/01/17 Ipratropium-Albuterol (Ipratropium-Albuterol) 0.5-3 Mg/3 Ml Ampul.neb, 3 ML HHN Q4H RESP THERAPY Y for SHORTNESS OF BREATH for 28 Days Prov:ROMY MARAVILLA MD 05/01/17 Albuterol Sulfate* (Albuterol Sulfate* Neb) 0.083%-3 Ml Neb, 2.5 MG NEB Q4H for 14 Days, #30 VIAL Prov:ROMY MARAVILLA MD 05/01/17 Albuterol Sulfate* (Ventolin HFA*) 18 Gm Hfa.aer.ad, 2 PUFF INHALATION Q6H for 14 Days, #1 INHALER Prov:ROMY MARAVILLA MD 07/30/16 Reported Medications Mometasone-Formoterol (Dulera) 100-5 Mcg - 13 Gm Hfa.aer.ad, 2 PUFFS INHALATION BID, #1 INHALER 04/27/17 Amlodipine Besylate* (Amlodipine Besylate*) 10 Mg Tablet, 10 MG PO DAILY, #30 TAB 03/20/16 Tiotropium [place]* (Spiriva*) 18 Mcg Cap.w.dev, 1 CAP INHALATION BID, #30 CAP 03/20/16 Montelukast Sodium* (Singulair*) 10 Mg Tablet, 10 MG PO QHS, #30 TAB 03/20/16 Discontinued Scripts Tiotropium [place]* (Spiriva*) 18 Mcg Cap.w.dev, 1 CAP INHALATION DAILY, #30 CAP Prov:ROMY MARAVILLA MD 05/01/17 Primary Care Provider MILAGROS Goodman Jul 10, 2017 13:21
== END 2017-07-09 19:09 | disposition home or self-care (01) | DRG 190 ==
LOC: MS2 20:17 → ICU 07-07 08:29 → TEL 07-08 22:16
PROVIDERS: ADMIT Internal Medicine Nephrology; ATTEND Internal Medicine Nephrology
DX: J44.1 Chronic obstructive pulmonary disease with (acute) exacerbation (principal); J96.90 Respiratory failure, unspecified, unspecified whether with hypoxia or hypercapnia; R00.0 Tachycardia, unspecified; I10 Essential (primary) hypertension; F17.200 Nicotine dependence, unspecified, uncomplicated; J45.909 Unspecified asthma, uncomplicated
CPT/HCPCS: 36600; 71010; 80048; 82803; 82962; 84100; 85025; 87081; 94640; 94664; J1650; J1956; J2930; J3475; J7512

== ENCOUNTER 2017-10-07 01:36 | Inpatient (IN) | payer BC ==
[2017-10-07] VITALS (7 sets, daily range): BP systolic 119–135; BP diastolic 76–83; PULSE 86–101; RESP 19–24; TEMP 97.8; Ht 165.1 cm; Wt 60.6 kg
[~2017-10-07] VITALS: Ht 165.1 cm; Wt 60.6 kg
[~2017-10-07 01:36] MED LIST changes: +ALBU90AE INHALATION; +LEVA1.2523 HHN; +MOME13HF INHALATION; +PRED20TA PO; +UDROBDM PO
--- NOTE | 2017-10-07 01:59 | ERD ---
ER Documentation Chief Complaint Chief Complaint SOB; COPD oxygen dependent; diff breathing, pain on R side of rib HPI The patient is a 47-year-old male, presenting to the ER because of intermittent shortness of breath for 1 week, intermittent cough for the last 2 days. He has similar symptoms previously, denies fever, productive cough, chest pain, abdominal pain, vomiting, dysuria, diarrhea. He used to smoke heavily until 2 years ago, he is currently on home O2 2 L nasal cannula continuously. Past medical history: COPD, hypertension Past surgical history: None ROS All systems reviewed and are negative except as per history of present illness. Medications Home Meds Active Scripts Prednisone* (Prednisone*) 20 Mg Tab, 5 MG PO DAILY for 5 Days, #46 TAB 07/10/17 50 mg PO daily, 10 tabs 07/11/17 40 mg PO daily, 8 tabs 07/12/17 30 mg PO daily, 6 tabs 07/11/17 30 mg po daily, 6 tabs 07/12/17 30 mg po daily, 6 tabs 07/13/17 20 mg po daily, 4 tabs 07/14/17 15 mg po daily, 3 tabs 07/15/17 10 mg po daily, 2 tabs 07/14/17 5 mg po daily, 1 tab 07/15/2017 none Prov:MILAGROS ACKERMAN 07/09/17 Albuterol Sulfate (Proair Respiclick) 90 Mcg Aer.pow.ba, 2 PUFFS INHALATION BID Y for SHORTNESS OF BREATH for 30 Days, BOTTLE Prov:MILAGROS ACKERMAN 07/09/17 Albuterol Sulfate* (Albuterol Sulfate* Neb) 0.083%-3 Ml Neb, 2.5 MG NEB Q4H, # 30 VIAL Prov:MILAGROS ACKERMAN 07/09/17 Tiotropium [place]* (Spiriva*) 18 Mcg Cap.w.dev, 1 CAP INHALATION DAILY, #30 CAP Prov:MILAGROS ACKERMAN 07/09/17 Mometasone-Formoterol (Dulera) 200-5 Mcg/Inh - 13 Gm Hfa.aer.ad, 2 PUFFS INHALATION BID, #1 INHALER Prov:MILAGROS ACKERMAN 07/09/17 Levalbuterol Hcl* (Xopenex*) 1.25 Mg/0.5 Ml Vial.neb, 1.25 MG HHN Q4H RESP THERAPY for 30 Days Prov:MILAGROS ACKERMAN 07/09/17 Guaifenesin-Dextromethorphan* (Robitussin* DM) 100MG/10MG/5ML Syrup, 5 ML PO Q4H Y for COUGH for 14 Days Prov:MILAGROS ACKERMAN 07/09/17 Methylprednisolone* (Medrol* DOSE PACK) 4 Mg/Dose-Pack Tab.ds.pk, 4 MG PO . DIRECTED for 10 Days, PACKET Prov:ROMY MARAVILLA MD 05/01/17 Levofloxacin* (Levaquin*) 500 Mg Tablet, 500 MG PO DAILY for 10 Days, TAB Prov:ROMY MARAVILLA MD 05/01/17 Pantoprazole* (Pantoprazole*) 40 Mg Tablet.dr, 40 MG PO DAILY@06 for 28 Days Prov:ROMY MARAVILLA MD 05/01/17 Ipratropium-Albuterol (Ipratropium-Albuterol) 0.5-3 Mg/3 Ml Ampul.neb, 3 ML HHN Q4H RESP THERAPY Y for SHORTNESS OF BREATH for 28 Days Prov:ROMY MARAVILLA MD 05/01/17 Albuterol Sulfate* (Albuterol Sulfate* Neb) 0.083%-3 Ml Neb, 2.5 MG NEB Q4H for 14 Days, #30 VIAL Prov:ROMY MARAVILLA MD 05/01/17 Albuterol Sulfate* (Ventolin HFA*) 18 Gm Hfa.aer.ad, 2 PUFF INHALATION Q6H for 14 Days, #1 INHALER Prov:ROMY MARAVILLA MD 07/30/16 Reported Medications Mometasone-Formoterol (Dulera) 100-5 Mcg - 13 Gm Hfa.aer.ad, 2 PUFFS INHALATION BID, #1 INHALER 04/27/17 Amlodipine Besylate* (Amlodipine Besylate*) 10 Mg Tablet, 10 MG PO DAILY, #30 TAB 03/20/16 Tiotropium [place]* (Spiriva*) 18 Mcg Cap.w.dev, 1 CAP INHALATION BID, #30 CAP 03/20/16 Montelukast Sodium* (Singulair*) 10 Mg Tablet, 10 MG PO QHS, #30 TAB 03/20/16 Allergies Allergies: Coded Allergies: No Known Allergy (Unverified , 04/27/17) PMhx/Soc Medical and Surgical Hx: pt denies Surgical Hx History of Surgery: No Anesthesia Reaction: No Hx Neurological Disorder: No Hx Respiratory Disorders: Yes (COPD) Hx Cardiac Disorders: Yes (HTN) Hx Psychiatric Problems: No Hx Miscellaneous Medical Probl: No Hx Alcohol Use: No Hx Substance Use: No Hx Tobacco Use: Yes Smoking Status: Former smoker Physical Exam Vitals Vital Signs Date Time Temp Pulse Resp B/P Pulse Ox O2 Delivery O2 Flow Rate FiO2 10/07/17 02:33 94 2.0 10/07/17 02:33 103 26 94 Nasal Cannula 2.0 10/07/17 01:57 Nasal Cannula 2.0 10/07/17 01:57 97.8 102 20 124/76 96 Nasal Cannula 2.0 10/07/17 01:41 96.4 108 25 115/56 95 Physical Exam Const: No acute distress. Head: Atraumatic. Eyes: Normal Conjunctiva. ENT: Normal External Ears, Nose and Mouth. Neck: Full range of motion. No meningismus. Resp: Bilateral expiratory wheezes, Tachypneic Cardio: Regular Tachycardic Abd: Soft, non distended, normal bowel sounds, non tender. Skin: No petechiae or rashes. Back: No midline or flank tenderness. Ext: No cyanosis, or edema. Neur: Awake and alert. No focal deficit Psych: Normal Mood and Affect. Result Diagram: 10/07/17 0235 10/07/17 0235 Results 24 hrs Laboratory Tests Test 10/07/17 02:35 White Blood Count 22.710^3/ul Red Blood Count 4.7210^6/ul Hemoglobin 14.2g/dl Hematocrit 41.1% Mean Corpuscular Volume 87.1fl Mean Corpuscular Hemoglobin 30.1pg Mean Corpuscular Hemoglobin Concent 34.5g/dl Red Cell Distribution Width 13.1% Platelet Count 10175^3/UL Mean Platelet Volume 13.1fl Neutrophils % 80.3% Lymphocytes % 7.1% Monocytes % 10.2% Eosinophils % 0.0% Basophils % 0.7% Nucleated Red Blood Cells % 0.0/100WBC Neutrophils # 18.210^3/ul Lymphocytes # 1.610^3/ul Monocytes # 2.310^3/ul Eosinophils # 0.010^3/ul Basophils # 0.210^3/ul Nucleated Red Blood Cells # 0.010^3/ul Prothrombin Time 13.6Sec Prothrombin Time Ratio 1.1 INR International Normalized Ratio 1.04 Activated Partial Thromboplast Time 28.1Sec Sodium Level 124mmol/L Potassium Level 3.4mmol/L Chloride Level 83mmol/L Carbon Dioxide Level 31mmol/L Anion Gap 13 Blood Urea Nitrogen 20mg/dl Creatinine 0.87mg/dl Glucose Level 105mg/dl Lactic Acid Level 1.2mmol/L Calcium Level 7.7mg/dl Total Bilirubin 1.0mg/dl Direct Bilirubin 0.70mg/dl Indirect Bilirubin 0.3mg/dl Aspartate Amino Transf (AST/SGOT) 71IU/L Alanine Aminotransferase (ALT/SGPT) 59IU/L Alkaline Phosphatase 156IU/L Troponin I 0.014ng/ml Total Protein 6.1g/dl Albumin 3.0g/dl Globulin 3.10g/dl Albumin/Globulin Ratio 0.96 Current Medications Medications (Trade) Dose Ordered Sig/Ramiro Route PRN Reason Start Time Stop Time Status Last Admin Dose Admin Levalbuterol (Xopenex Neb) 3.75 mg ONCE STAT INH 10/07/17 02:03 10/07/17 02:05 DC 10/07/17 02:32 Ipratropium [place] (Atrovent 0.02% (Neb)) 1.5 mg ONCE STAT INH 10/07/17 02:03 10/07/17 02:05 DC 10/07/17 02:32 Methylprednisolone Sodium Succinate (Solu-Medrol) 125 mg ONCE STAT IV 10/07/17 02:03 10/07/17 02:05 DC 10/07/17 03:40 Ketorolac Tromethamine 30 mg 30 mg ONCE STAT IV 10/07/17 02:05 10/07/17 02:06 DC 10/07/17 03:40 Sodium Chloride 1,000 ml @ 1,000 mls/hr Q1H ONCE IV 10/07/17 03:00 10/07/17 03:59 Cancel Vancomycin HCl 250 ml @ 125 mls/hr ONCE IVPB 10/07/17 03:30 10/07/17 05:29 Cefepime HCl 50 ml @ 100 mls/hr ONCE ONCE IVPB 10/07/17 03:30 10/07/17 03:59 DC 10/07/17 03:40 Sodium Chloride 1,950 ml @ 1,950 mls/hr BOLUS X1 ONCE IV 10/07/17 03:30 10/07/17 04:29 DC 10/07/17 03:41 Sodium Chloride (NS) 1,000 ml @ 1,000 mls/hr Q1H ONCE IV 10/07/17 03:30 10/07/17 04:29 Cancel Potassium Chloride (Klor-Con 20) 40 meq ONCE ONCE PO 10/07/17 03:56 10/07/17 03:57 DC Procedures/MDM UA/ABG: Pending [place] [id number] Radiology Main Line: [phone] DIAGNOSTIC IMAGING REPORT Patient: LIA CRUZ : 1970 Age: 47 Sex: M MR #: [id number] DOS: 10/07/17 0203 Ordering MD: FABRICIO KELLEY MD Location: E/R Room/Bed: PROCEDURE: XR Chest. CLINICAL INDICATION: Sepsis. TECHNIQUE: Single frontal chest x-ray. COMPARISON: 07/07/2017 FINDINGS: Heart is normal in size.. There is interval development of a dense pneumonia in the lower right mid lung field and base. There are patchy infiltrates in the right upper lobe and left lung base.. There is no pleural effusion. There is no pneumothorax. The osseous structures are unremarkable. IMPRESSION: Bilateral pneumonias, right greater than left. RPTAT: HMVK .Fabricio Hall MD, MD Date Time Electronically viewed and signed by .Fabricio Hall MD, MD on 10/07/2017 02:43 .K/ CC: FABRICIO KELLEY MD EKG: Read by emergency physician Rate/Rhythm: Sinus tachycardia 100 beats/min QRS, ST, T-waves: No ST elevation, no T inversion, LVH, nonspecific ST abnormality Impression: Abnormal EKG . MEDICAL MAKING DECISION: The patient is a 47-year-old male, presenting with acute bilateral pneumonia, acute hypokalemia. He was treated with Xopenex 3.75 mg and Atrovent 1.5 mg continuous nebulizer over one hour, Solumerol 125 mg IV, vancomycin IV, cefepime IV, normal saline 30 ml/kg IV for acute bilateral pneumonia, potassium chloride 40 mg p.o. for acute hypokalemia with good response. The differential diagnoses considered include but are not limited to asthma, COPD, pneumonia, pulmonary embolus, pleural effusion, congestive heart failure. Critical Care: Time: 35 minutes excluding all billable procedures. Treatments/Evaluations: Close monitoring and treatment of unstable vital signs, cardiorespiratory, and neurologic status, while maintaining tight balance of fluid, respiratory, and cardiac interventions. Departure Diagnosis: Primary Impression: Bilateral pneumonia Additional Impressions: Hypokalemia Abnormal LFTs Condition: Stable Comments I discussed the findings with the patient. I discussed the patient with his physician Dr. Maravilla at 4:30 am who was made aware of the lab, the treatment, the patient condition. The patient is admitted to Tel Disclaimer: Inadvertent spelling and grammatical errors are likely due to EHR/ dictation software use and do not reflect on the overall quality of patient care. Also, please note that the electronic time recorded on this note does not necessarily reflect the actual time of the patient encounter. FABRICIO KELLEY MD Oct 07, 2017 01:59
[2017-10-07] MEDS ORDERED: IPRATROPIUM (NEB) 0.5 MG/2.5 ML AMP INH STA (02:03)
[2017-10-07] MEDS ORDERED: METHYLPREDNISOLONE 125 MG INJ IV STA (02:03)
[2017-10-07] MEDS ORDERED: LEVALBUTEROL (NEB) 1.25 MG/0.5 ML AMP INH STA (02:03)
[2017-10-07] MEDS ORDERED: KETOROLAC 30 MG INJ IV STA (02:05)
--- NOTE | 2017-10-07 02:44 | RADRPT ---
PROCEDURE: XR Chest. CLINICAL INDICATION: Sepsis. TECHNIQUE: Single frontal chest x-ray. COMPARISON: 07/07/2017 FINDINGS: Heart is normal in size.. There is interval development of a dense pneumonia in the lower right mid lung field and base. There are patchy infiltrates in the right upper lobe and left lung base.. The re is no pleural effusion. There is no pneumothorax. The osseous structures are unremarkable. IMPRESSION: Bilateral pneumonias, right greater than left. RPTAT: HMVK .Fabricio Hall MD, MD Date Time Electronically viewed and signed by .Fabricio Hall MD, on 10/07/2017 02:43 .K/
[2017-10-07 02:56] LABS: ABNORMAL IP MESSAGE 1; BASOPHIL # 0.2 10^3/ul (0.0-0.1); BASOPHILS % 0.7 % (0.0-2.0); HEMATOCRIT 41.1 % (42.0-52.0); HEMOGLOBIN 14.2 g/dl (14.0-18.0); LYMPHOCYTES # 1.6 10^3/ul (0.8-2.9); LYMPHOCYTES % 7.1 % (15.0-51.0); MEAN CORPUSCULAR HEMOGLOBIN 30.1 pg (29.0-33.0); MEAN CORPUSCULAR HGB CONC 34.5 g/dl (32.0-37.0); MEAN CORPUSCULAR VOLUME 87.1 fl (82.0-101.0); MEAN PLATELET VOLUME 13.1 fl (7.4-10.4); MONOCYTE # 2.3 10^3/ul (0.3-0.9); MONOCYTES % 10.2 % (0.0-11.0); NEUTROPHIL # 18.2 10^3/ul (1.6-7.5); NEUTROPHILS % 80.3 % (39.0-77.0); PLATELET COUNT 176 10^3/UL (140-415); POSITIVE DIFF @See below; RED BLOOD COUNT 4.72 10^6/ul (4.70-6.10); RED CELL DISTRIBUTION WIDTH 13.1 % (11.5-14.5); WHITE BLOOD COUNT 22.7 10^3/ul (4.8-10.8)
[2017-10-07] MEDS ORDERED: SOD CHLORIDE 0.9% 1,000 ML IV ONE ×2 (03:00→03:30)
[2017-10-07 03:24] LABS: INR 1.04; PROTIME 13.6 Sec (12.2-14.2); PT RATIO 1.1
[2017-10-07 03:25] LABS: ALBUMIN/GLOBULIN RATIO 0.96; BILIRUBIN,DIRECT 0.7 mg/dl (0.00-0.20); BILIRUBIN,INDIRECT 0.3 mg/dl (0-1.1); CALCIUM 7.7 mg/dl (8.4-10.2); CREATININE 0.87 mg/dl (0.61-1.24); POTASSIUM 3.4 mmol/L (3.5-5.1); TOTAL PROTEIN 6.1 g/dl (6.1-8.1)
[2017-10-07] MEDS ORDERED: SOD CHLORIDE 0.9% 1,950 ML IV ONE (03:30)
[2017-10-07] MEDS ORDERED: VANCOMYCIN 1 GM (PMX) 250 ML IVPB SCH (03:30)
[2017-10-07] MEDS ORDERED: CEFEPIME 1GM/50 ML (PMX) 50 ML IVPB ONE (03:30)
[2017-10-07 03:36] LABS: PARTIAL THROMBOPLASTIN TIME 28.1 Sec (25.0-35.0); TROPONIN-I 0.014 ng/ml (0.00-0.12)
[2017-10-07] MEDS ORDERED: POTASSIUM CHLORIDE (SR) 20 MEQ TAB PO ONE (03:56)
[2017-10-07 04:42] LABS: URINE BLOOD (Dip) POC 1+ (NEGATIVE)
[2017-10-07 04:55] LABS: ADD UMIC YES; UR ASCORBIC ACID NEGATIVE (NEGATIVE); UR BILIRUBIN (Dip) NEGATIVE (NEGATIVE); UR BLOOD (Dip) 2+ mg/dL (NEGATIVE); UR CLARITY CLEAR (CLEAR); UR COLOR YELLOW (YELLOW); UR GLUCOSE (Dip) NEGATIVE (NEGATIVE); UR KETONES (Dip) TRACE mg/dL (NEGATIVE); UR LEUKOCYTE ESTERASE (Dip) NEGATIVE Leu/ul (NEGATIVE); UR NITRITE (Dip) NEGATIVE (NEGATIVE); UR RBC 2 /HPF (0-5); UR TOTAL PROTEIN (Dip) NEGATIVE (NEGATIVE); UR UROBILINOGEN (Dip) 2+ mg/dL (NEGATIVE)
[2017-10-07 05:13] LABS: Arterial Base Excess 0.1 mmol/L (-3.0-3); Arterial COHb 0.6 % (0.0-3.0); Arterial Fraction of Oxyhgb 93.5 % (93.0-99.0); Arterial HCO3 24.9 mmol/L (22.0-26.0); Arterial MetHb 0.1 % (0.0-1.5); Arterial Total Hemglobin 14.6 g/dl (12.0-18.0); MODE NASAL CANNULA
[2017-10-07] MEDS ORDERED: ALBU18HF INHALATION (07:02)
[2017-10-07] MEDS ORDERED: ALBU2.5V3 NEB (07:02)
[2017-10-07] MEDS: 1/2 NS + KCL 20 MEQ 1,000 ML IV SCH (12:00)
[2017-10-07] MEDS ORDERED: NACL 0.9% 3 ML SYG IV SCH (12:00)
[2017-10-07] MEDS ORDERED: ONDANSETRON 4 MG TAB PO PRN (12:00)
[2017-10-07] MEDS ORDERED: MAGNESIUM HYDROXIDE 30ML CUP PO PRN (12:00)
[2017-10-07] MEDS ORDERED: BISACODYL (EC) 5 MG TAB PO PRN (12:00)
[2017-10-07] MEDS ORDERED: ALBUTEROL 0.083% (NEB) 2.5 MG/3 ML AMP NEB PRN (12:00)
[2017-10-07] MEDS ORDERED: ALBUTEROL/IPRATROPIUM (NEB) 3 ML AMP HHN PRN (12:00)
[2017-10-07] MEDS ORDERED: DOCUSATE SODIUM 100 MG CAP PO PRN (12:00)
[2017-10-07] MEDS: ALBUTEROL/IPRATROPIUM (NEB) 3 ML AMP HHN PRN (12:25)
[2017-10-07] MEDS ORDERED: IPRATROPIUM (NEB) 0.5 MG/2.5 ML AMP HHN SCH (13:00)
[2017-10-07] MEDS: METHYLPREDNISOLONE 125 MG INJ IV SCH ×2 (14:12→22:15)
[2017-10-07] MEDS ORDERED: PIPER-TAZO 3.375 GM IV (PMX) 100 ML ONE (15:10)
[2017-10-07] MEDS: PIPER-TAZO 3.375 GM IV (PMX) 50 ML IVPB SCH ×2 (15:13→22:15)
--- NOTE | 2017-10-07 16:11 | QN ---
Documentation Comment [id number] ROMY MARAVILLA MD Oct 07, 2017 16:11
--- NOTE | 2017-10-07 20:36 | HP ---
DATE OF ADMISSION: 10/07/2017 HISTORY OF PRESENT ILLNESS: Armen Hutchison is a 47-year-old male with history of COPD, hypertension, asthma. He presented to this hospital, was short of breath, noted to have a lung infiltrate and is being admitted for further management. Patient noted to have WBC 22.7, hematocrit of 41.7, platelet count of 176, sodium 127, potassium 3.4, and patient had chest x-ray, shows bilateral pneumonia, right greater than left. PAST MEDICAL HISTORY: COPD, asthma. Patient's other history includes history of multiple hospitalizations. ALLERGIES: NEGATIVE. FAMILY HISTORY: Negative. SOCIAL HISTORY: Negative. MEDICATIONS: The patient is on: 1. Albuterol. 2. Mometasone. 3. Singulair. 4. Tiotropium bromide. REVIEW OF SYSTEMS: HEENT: Unremarkable. RESPIRATORY: Cough, short of breath, wheezing. CARDIOVASCULAR: S1, S2 normal. unremarkable. PHYSICAL EXAMINATION: GENERAL: The patient is awake, alert. VITALS: Stable. No short of breath at rest. HEENT: Head is atraumatic, normocephalic. Pupils equal, reactive to light. NECK: Supple. No JVD. LUNGS: Decreased air entry both bases with few rhonchi. CARDIOVASCULAR: S1, S2 normal. ABDOMEN: Soft. Bowel sounds present. No palpable mass or hepatosplenomegaly. No guarding, rebound tenderness. EXTREMITIES: There is no cyanosis, clubbing or edema. CENTRAL NERVOUS SYSTEM: The patient is awake, alert, no deficit. IMPRESSION: 1. Chronic obstructive pulmonary disease exacerbation. 2. The patient has bilateral lower lobe pneumonia. 3. Hyponatremia. 4. Hypokalemia. 5. Leukocytosis. PLAN: To continue IV fluid, potassium supplementation, antibiotics, continue home medication, bronchodilator, DVT prophylaxis. Orders were done. Dictated By: ROMY CARMEN/LAKE Conf#: [id number] DID#: [id number] MTDD
[2017-10-07] MEDS: MONTELUKAST 10 MG TAB PO SCH (22:15)
[2017-10-07] MEDS: TIOTROPIUM 18 MCG CAPSULE INHA DEV INH SCH (22:16)
[2017-10-07] MEDS: GUAIFENESIN/DM 5ML CUP PO PRN (23:39)
[2017-10-07] MEDS: HYDROCODONE/APAP (5/325) TAB PO PRN (23:40)
[2017-10-08] VITALS (12 sets, daily range): BP systolic 107–147; BP diastolic 64–87; PULSE 82–107; RESP 19–22
[2017-10-08] MEDS: PIPER-TAZO 3.375 GM IV (PMX) 50 ML IVPB SCH ×3 (05:17→20:59)
[2017-10-08] MEDS: METHYLPREDNISOLONE 125 MG INJ IV SCH ×3 (05:18→20:59)
[2017-10-08] MEDS ORDERED: PANTOPRAZOLE 40 MG INJ IV SCH (06:00)
[2017-10-08 06:11] LABS: HEMATOCRIT 41.2 % (42.0-52.0); HEMOGLOBIN 13.8 g/dl (14.0-18.0); MEAN CORPUSCULAR HEMOGLOBIN 30.3 pg (29.0-33.0); MEAN CORPUSCULAR HGB CONC 33.5 g/dl (32.0-37.0); MEAN CORPUSCULAR VOLUME 90.4 fl (82.0-101.0); MEAN PLATELET VOLUME 12.3 fl (7.4-10.4); PLATELET COUNT 262 10^3/UL (140-415); POSITIVE DIFF @See below; RED BLOOD COUNT 4.56 10^6/ul (4.70-6.10); RED CELL DISTRIBUTION WIDTH 13.3 % (11.5-14.5); WHITE BLOOD COUNT 22.3 10^3/ul (4.8-10.8)
[2017-10-08 07:00] LABS: ALBUMIN 2.9 g/dl (3.3-4.9); ALBUMIN/GLOBULIN RATIO 0.8; BILIRUBIN,INDIRECT 0.2 mg/dl (0-1.1); BILIRUBIN,TOTAL 0.2 mg/dl (0.2-1.3); CALCIUM 7.9 mg/dl (8.4-10.2); CREATININE 0.78 mg/dl (0.61-1.24); POTASSIUM 3.9 mmol/L (3.5-5.1); TOTAL PROTEIN 6.5 g/dl (6.1-8.1)
[2017-10-08] MEDS: 1/2 NS + KCL 20 MEQ 1,000 ML IV SCH ×2 (07:57→13:22)
[2017-10-08] MEDS: ENOXAPARIN 40 MG/0.4 ML SYG SC SCH (07:57)
[2017-10-08 08:27] LABS: BURR CELLS 1+ (0-0); GIANT THROMBO% (M) 1 % (0-0); MONOCYTES % (M) 3 % (0-11); PLATELET ESTIMATE NORMAL; POIKILOCYTOSIS 1+ (0-0); POLYCHROMASIA 3+ (0-0); REACTIVE LYMPHOCYTES% (M) 1 % (0-0)
[2017-10-08] MEDS: TIOTROPIUM 18 MCG CAPSULE INHA DEV INH SCH ×2 (09:27→21:00)
[2017-10-08] MEDS: GUAIFENESIN/DM 5ML CUP PO PRN ×3 (09:27→21:00)
[2017-10-08] MEDS: ALBUTEROL HFA 8 GM INHALER INH PRN ×2 (11:24→19:08)
--- NOTE | 2017-10-08 14:48 | PN ---
Date/Time of Note Date/Time of Note DATE: 10/08/17 TIME: 14:47 Assessment/Plan VTE Prophylaxis VTE Prophylaxis Intervention: ambulation Lines/Catheters IV [facility] Peripheral IV Assessment/Plan Chief Complaint/Hosp Course 1. Chronic obstructive pulmonary disease exacerbation. 2. bilateral lower lobe pneumonia. 3. Hyponatremia. 4. Hypokalemia. 5.SIRS Problems: Assessment/Plan 1.continue IV fluids 2. Continue a/b 3. ID consult dr Diehl Subjective 24 Hr Interval Summary Respiratory: pleuritic pain, shortness of breath Exam/Review of Systems Vital Signs Vitals Vital Signs Date Time Temp Pulse Resp B/P Pulse Ox O2 Delivery O2 Flow Rate FiO2 10/08/17 12:01 96 10/08/17 11:35 98.0 21 107/64 98 10/08/17 08:05 Nasal Cannula 3.0 10/07/17 12:25 28 Intake and Output 10/07/17 10/07/17 10/08/17 15:00 23:00 07:00 Intake Total 1050 ml Balance 1050 ml Exam Constitutional: alert, oriented Respiratory: diminished breath sounds Cardiovascular: regular rate and rhythm Results Result Diagram: 10/08/17 0508 10/08/17 0508 Results 24 hrs Laboratory Tests Test 10/08/17 05:08 White Blood Count 22.3 H Red Blood Count 4.56 L Hemoglobin 13.8 L Hematocrit 41.2 L Mean Corpuscular Volume 90.4 Mean Corpuscular Hemoglobin 30.3 Mean Corpuscular Hemoglobin Concent 33.5 Red Cell Distribution Width 13.3 Platelet Count 262 # Mean Platelet Volume 12.3 H Neutrophils % Segmented Neutrophils % (Manual) 90 H Band Neutrophils % (Manual) 5 H Lymphocytes % Lymphocytes % (Manual) 1 L Reactive Lymphocytes % (Manual) 1 H Monocytes % Monocytes % (Manual) 3 Eosinophils % Basophils % Nucleated Red Blood Cells % 0.0 Neutrophils # Neutrophils # (Manual) 20.3 H Band Neutrophils # 1.1 H Absolute Lymphocytes (Manual) 0.2 L Lymphocytes # Reactive Lymphocytes # 0.2 H Monocytes # Absolute Monocytes (Manual) 0.6 Eosinophils # Basophils # Nucleated Red Blood Cells # Platelet Estimate NORMAL Giant Platelets 1 H Polychromasia 3+ Poikilocytosis 1+ Sodium Level 131 L Potassium Level 3.9 Chloride Level 92 L Carbon Dioxide Level 31 Anion Gap 12 Blood Urea Nitrogen 17 Creatinine 0.78 Glucose Level 201 Calcium Level 7.9 L Total Bilirubin 0.2 Direct Bilirubin 0.00 # Indirect Bilirubin 0.2 Aspartate Amino Transf (AST/SGOT) 45 Alanine Aminotransferase (ALT/SGPT) 55 Alkaline Phosphatase 133 H Total Protein 6.5 Albumin 2.9 L Globulin 3.60 H Albumin/Globulin Ratio 0.80 Medications Medications Current Medications Albuterol (Ventolin Hfa) 2 puff Q4H PRN INH WHEEZING AND SOB Last administered on 10/08/17 11:24; Admin Dose 2 PUFF; Start 10/07/17 at 12:00 Montelukast Sodium (Singulair) 10 mg QHS PO Last administered on 10/07/17 22: 15; Admin Dose 10 MG; Start 10/07/17 at 21:00 Tiotropium [place] (Spiriva) 1 inh BID INH Last administered on 10/08/17 09:27 ; Admin Dose 1 INH; Start 10/07/17 at 21:00 Ondansetron HCl (Zofran Tab) 4 mg Q6H PRN PO NAUSEA AND/OR VOMITING; Start at 12:00 Acetaminophen (Tylenol Tab) 650 mg Q6H PRN PO PAIN LEVEL 1-3 OR FEVER; Start 10/07/17 at 12:00 Docusate Sodium (Colace) 100 mg Q12H PRN PO CONSTIPATION; Start 10/07/17 at 12 :00 Magnesium Hydroxide (Milk Of Mag) 30 ml DAILY PRN PO CONSTIPATION; Start 10/07 at 12:00 Bisacodyl (Dulcolax) 5 mg DAILY PRN PO CONSTIPATION; Start 10/07/17 at 12:00 Pantoprazole (Protonix Iv) 40 mg DAILY@06 IV Last administered on 10/08/17 05: 17; Admin Dose 40 MG; Start 10/08/17 at 06:00 Enoxaparin Sodium 40 mg 40 mg DAILY SC ; Start 10/08/17 at 09:00 Piperacillin Sod/ Tazobactam Sod (Zosyn 3.375gm/ 50 ml (Pmx)) 50 ml @ 100 mls/ hr Q8 IVPB Last administered on 10/08/17 13:22; Admin Dose 100 MLS/HR; Start 10/07/17 at 14:00 Methylprednisolone Sodium Succinate 60 mg 60 mg Q8 IV Last administered on 10/08 13:22; Admin Dose 60 MG; Start 10/07/17 at 14:00 Potassium Chloride/Sodium Chloride (1/2 NS + KCl 20 Meq) 1,000 ml @ 50 mls/hr Q20H IV Last administered on 10/08/17 13:22; Admin Dose 50 MLS/HR; Start at 12:00 Guaifenesin/ Dextromethorphan (Robitussin Dm Liquid Cup) 5 ml TID PRN PO COUGH Last administered on 10/08/17 09:27; Admin Dose 5 ML; Start 10/07/17 at 22:30 Acetaminophen/ Hydrocodone Bitart ([place] (5/325)) 1 tab BID PRN PO PAIN Last administered on 10/07/17 23:40; Admin Dose 1 TAB; Start 10/07/17 at 22:30 MILAGROS ACKERMAN Oct 08, 2017 14:48
[2017-10-08] MEDS ORDERED: ZOLPIDEM 5 MG TAB PO PRN (15:00)
[2017-10-08] MEDS: ACETAMINOPHEN 325 MG TAB PO PRN (16:10)
[2017-10-08] MEDS: MONTELUKAST 10 MG TAB PO SCH (20:59)
[2017-10-09] VITALS (11 sets, daily range): BP systolic 123–147; BP diastolic 73–90; PULSE 74–95; RESP 18–20
--- NOTE | 2017-10-09 01:56 | CONS ---
DATE OF ADMISSION: 10/07/2017 DATE OF CONSULTATION: 10/08/2017 TYPE OF CONSULTATION: Infectious Disease. REASON FOR CONSULTATION: Antibiotic management. HISTORY OF PRESENT ILLNESS: Armen Hutchison is a 47-year-old male with history of COPD and asthma, as a child who comes in with shortness of breath and is being seen for antibiotic management. He p resented to the hospital with shortness of breath. On admission, his white count was 22.7, H and H 14.2 and 41.1, platelet count 176,000. On 10/08/2017, white count was 22.3, BUN and creatinine 17/0 .78. Urine shows negative nitrite, negative leukocyte esterase. Urine is negative. Blood cultures are negative. Chest x-ray shows bilateral pneumonia, right greater than left. Interval developmen t of dense pneumonia in lower right mid lung field base and patchy infiltrates in the right upper lo be and left lung. The osseous studies are unremarkable. The patient was begun on Zosyn. He is als o on methylprednisolone. PAST MEDICAL HISTORY: Operations as outlined. FAMILY HISTORY: Noncontributory. SOCIAL HISTORY: He does not smoke, drink or abuse drugs. He smoked in the past but has not smoked in many years. ALLERGIES: NONE TO PENICILLIN, SULFA OR FOODS. MEDICATIONS: Per chart. REVIEW OF SYSTEMS: Noncontributory. PHYSICAL EXAMINATION: GENERAL: The patient is a well-developed, well-nourished male who is alert, responsive, in no acute distress. VITAL SIGNS: Stable. He is afebrile. SKIN: Without generalized rash. HEENT: Within normal limits. NECK: Supple. LYMPH NODES: None palpable. CHEST: Decreased breath sounds at the bases with scattered rhonchi and wheezes. HEART: Without murmur or gallop. ABDOMEN: Soft, nontender, without organosplenomegaly or masses. EXTREMITIES: Without cyanosis, clubbing, or edema. RECTAL AND GENITAL: Deferred. NEUROLOGIC: No focal neurological abnormalities. IMPRESSION AND PLAN: The patient currently has pneumonia on top of chronic obstructive pulmonary di sease. He has bilateral lower lobe pneumonia. Although this may be hospital acquired, it is quite s evere and I would concur with the use of Zosyn at this point in time. He may also have had antibioti cs in the last few months. His white count today is 22.3. He is on methylprednisolone, which would raise his white count in general, although when he came in it was high at 22.7. I will dictate my findings to Dr. Maravilla. Dictated By: CATALINA RAMÍREZ MD, JD/LAKE Conf#: [id number] DID#: [id number] CC: ROMY MARAVILLA MD;*EndCC*
[2017-10-09] MEDS: METHYLPREDNISOLONE 125 MG INJ IV SCH ×3 (06:10→21:27)
[2017-10-09] MEDS: GUAIFENESIN/DM 5ML CUP PO PRN ×3 (06:10→18:00)
[2017-10-09] MEDS: PANTOPRAZOLE (EC) 40 MG TAB PO SCH (06:10)
[2017-10-09] MEDS: PIPER-TAZO 3.375 GM IV (PMX) 50 ML IVPB SCH (06:11)
[2017-10-09 08:23] LABS: BASOPHILS % 0.3 % (0.0-2.0); HEMATOCRIT 39.8 % (42.0-52.0); HEMOGLOBIN 13.1 g/dl (14.0-18.0); LYMPHOCYTES # 1.1 10^3/ul (0.8-2.9); LYMPHOCYTES % 6.7 % (15.0-51.0); MEAN CORPUSCULAR HEMOGLOBIN 29.6 pg (29.0-33.0); MEAN CORPUSCULAR HGB CONC 32.9 g/dl (32.0-37.0); MEAN CORPUSCULAR VOLUME 89.8 fl (82.0-101.0); MEAN PLATELET VOLUME 11.8 fl (7.4-10.4); MONOCYTE # 0.6 10^3/ul (0.3-0.9); MONOCYTES % 3.9 % (0.0-11.0); NEUTROPHIL # 13.8 10^3/ul (1.6-7.5); NEUTROPHILS % 87.5 % (39.0-77.0); PLATELET COUNT 362 10^3/UL (140-415); RED BLOOD COUNT 4.43 10^6/ul (4.70-6.10); RED CELL DISTRIBUTION WIDTH 13.5 % (11.5-14.5); WHITE BLOOD COUNT 15.8 10^3/ul (4.8-10.8)
[2017-10-09] MEDS: ENOXAPARIN 40 MG/0.4 ML SYG SC SCH (08:44)
[2017-10-09] MEDS: TIOTROPIUM 18 MCG CAPSULE INHA DEV INH SCH ×2 (08:44→21:00)
[2017-10-09 08:45] LABS: CREATININE 0.86 mg/dl (0.61-1.24); POTASSIUM 3.6 mmol/L (3.5-5.1)
[2017-10-09] MEDS: 1/2 NS + KCL 20 MEQ 1,000 ML IV SCH (12:21)
[2017-10-09] MEDS: AZITHROMYCIN 250 MG TAB PO SCH (13:48)
--- NOTE | 2017-10-09 14:10 | PN ---
Date/Time of Note Date/Time of Note DATE: 10/09/17 TIME: 14:09 Assessment/Plan VTE Prophylaxis VTE Prophylaxis Intervention: ambulation Lines/Catheters IV C[facility]ter Type (from [facility]): Peripheral IV Assessment/Plan Chief Complaint/Hosp Course 1. Chronic obstructive pulmonary disease exacerbation. 2. bilateral lower lobe pneumonia. 3. Hyponatremia. 4. Hypokalemia. 5. SIRS, better Problems: Assessment/Plan 1. Continue current treatment Subjective 24 Hr Interval Summary Constitutional: improved, no complaints Exam/Review of Systems Vital Signs Vitals Vital Signs Date Time Temp Pulse Resp B/P Pulse Ox O2 Delivery O2 Flow Rate FiO2 10/09/17 12:06 89 10/09/17 11:33 98.0 18 138/77 97 10/09/17 08:49 Nasal Cannula 3.0 10/07/17 12:25 28 Intake and Output 10/08/17 10/08/17 10/09/17 15:00 23:00 07:00 Intake Total 2275 ml 1150 ml Balance 2275 ml 1150 ml Exam Constitutional: alert, oriented Neck: supple Respiratory: diminished breath sounds Cardiovascular: regular rate and rhythm Results Result Diagram: 10/09/17 0722 10/09/17 0724 Results 24 hrs Laboratory Tests Test 10/09/17 07:22 10/09/17 07:24 White Blood Count 15.8 #H Red Blood Count 4.43 L Hemoglobin 13.1 L Hematocrit 39.8 L Mean Corpuscular Volume 89.8 Mean Corpuscular Hemoglobin 29.6 Mean Corpuscular Hemoglobin Concent 32.9 Red Cell Distribution Width 13.5 Platelet Count 362 # Mean Platelet Volume 11.8 H Neutrophils % 87.5 H Lymphocytes % 6.7 L Monocytes % 3.9 Eosinophils % 0.0 Basophils % 0.3 Nucleated Red Blood Cells % 0.0 Neutrophils # 13.8 H Lymphocytes # 1.1 Monocytes # 0.6 Eosinophils # 0.0 Basophils # 0.0 Nucleated Red Blood Cells # 0.0 Sodium Level 137 Potassium Level 3.6 Chloride Level 99 Carbon Dioxide Level 27 Anion Gap 15 Blood Urea Nitrogen 15 Creatinine 0.86 Glucose Level 188 Calcium Level 8.0 L Medications Medications Current Medications Albuterol (Ventolin Hfa) 2 puff Q4H PRN INH WHEEZING AND SOB Last administered on 10/08/17t 19:08; Admin Dose 2 PUFF; Start 10/07/17 at 12:00 Montelukast Sodium (Singulair) 10 mg QHS PO Last administered on 10/08/17 20: 59; Admin Dose 10 MG; Start 10/07/17 at 21:00 Tiotropium [place] (Spiriva) 1 inh BID INH Last administered on 10/09/17 08:44 ; Admin Dose 1 INH; Start 10/07/17 at 21:00 Ondansetron HCl (Zofran Tab) 4 mg Q6H PRN PO NAUSEA AND/OR VOMITING; Start at 12:00 Acetaminophen (Tylenol Tab) 650 mg Q6H PRN PO PAIN LEVEL 1-3 OR FEVER Last administered on 10/08/17 16:10; Admin Dose 650 MG; Start 10/07/17 at 12:00 Docusate Sodium (Colace) 100 mg Q12H PRN PO CONSTIPATION; Start 10/07/17 at 12 :00 Magnesium Hydroxide (Milk Of Mag) 30 ml DAILY PRN PO CONSTIPATION; Start 10/07 at 12:00 Bisacodyl (Dulcolax) 5 mg DAILY PRN PO CONSTIPATION; Start 10/07/17 at 12:00 Enoxaparin Sodium (Lovenox) 40 mg DAILY SC ; Start 10/08/17 at 09:00 Methylprednisolone Sodium Succinate 60 mg 60 mg Q8 IV Last administered on 10/09 13:48; Admin Dose 60 MG; Start 10/07/17 at 14:00 Potassium Chloride/Sodium Chloride (1/2 NS + KCl 20 Meq) 1,000 ml @ 50 mls/hr Q20H IV Last administered on 10/09/17 12:21; Admin Dose 50 MLS/HR; Start at 12:00 Acetaminophen/ Hydrocodone Bitart ([place] (5/325)) 1 tab BID PRN PO PAIN Last administered on 10/07/17 23:40; Admin Dose 1 TAB; Start 10/07/17 at 22:30 Guaifenesin/ Dextromethorphan (Robitussin Dm Liquid Cup) 10 ml Q4H PRN PO COUGH Last administered on 10/09/17 12:20; Admin Dose 10 ML; Start 10/08/17 at 17:00 Zolpidem Tartrate (Ambien) 5 mg HS PRN PO INSOMNIA Last administered on 21:19; Admin Dose 5 MG; Start 10/08/17 at 15:00 Pantoprazole 40 mg 40 mg DAILY@06 PO Last administered on 10/09/17 06:10; Admin Dose 40 MG; Start 10/09/17 at 06:00 Cefepime HCl (Maxipime 1gm/50 ml (Pmx)) 50 ml @ 100 mls/hr Q12 IVPB ; Start at 21:00 Azithromycin (Zithromax) 500 mg DAILY PO Last administered on 10/09/17 13:48; Admin Dose 500 MG; Start 10/09/17 at 13:30 MILAGROS ACKERMAN Oct 09, 2017 14:10
[2017-10-09] MEDS: CEFEPIME 1GM/50 ML (PMX) 50 ML IVPB SCH (21:27)
[2017-10-09] MEDS: MONTELUKAST 10 MG TAB PO SCH (21:27)
[2017-10-09] MEDS: ALBUTEROL/IPRATROPIUM (NEB) 3 ML AMP HHN PRN (21:41)
[2017-10-10] VITALS (10 sets, daily range): BP systolic 123–153; BP diastolic 64–78; PULSE 70–92; RESP 20
[2017-10-10] MEDS: GUAIFENESIN/DM 5ML CUP PO PRN ×4 (01:44→22:09)
[2017-10-10] MEDS: ACETAMINOPHEN 325 MG TAB PO PRN (01:50)
[2017-10-10] MEDS: ALBUTEROL/IPRATROPIUM (NEB) 3 ML AMP HHN PRN ×3 (06:04→13:26)
[2017-10-10] MEDS: PANTOPRAZOLE (EC) 40 MG TAB PO SCH (06:25)
[2017-10-10] MEDS: METHYLPREDNISOLONE 125 MG INJ IV SCH ×3 (06:25→21:58)
[2017-10-10] MEDS: ENOXAPARIN 40 MG/0.4 ML SYG SC SCH (08:26)
[2017-10-10] MEDS: CEFEPIME 1GM/50 ML (PMX) 50 ML IVPB SCH ×2 (08:35→21:58)
[2017-10-10] MEDS: AZITHROMYCIN 250 MG TAB PO SCH (08:36)
[2017-10-10] MEDS: TIOTROPIUM 18 MCG CAPSULE INHA DEV INH SCH ×2 (08:37→21:58)
--- NOTE | 2017-10-10 11:19 | RADRPT ---
PROCEDURE: XR Chest. CLINICAL INDICATION: Cough. Evaluate for pneumonia. TECHNIQUE: PA and Lateral views of the chest were obtained. COMPARISON: Chest radiograph dated April 27, 2017. FINDINGS: The cardiomediastinal silhouette is within normal limits. There are patchy consolidations in the right lung base consistent with pneumonia in the correct clin ical context. A small right pleural effusion is also present. No evidence of pneumothorax. The osseous structures are unremarkable. IMPRESSION: 1. Patchy consolidations in the right lung base consistent with pneumonia in the correct clinical c ontext. 2. Small right pleural effusion. RPTAT:AAJJ Physician Sveta Date Time Electronically viewed and signed by Physician Sveta on 10/10/2017 11:19 QL/
--- NOTE | 2017-10-10 13:53 | PN ---
Date/Time of Note Date/Time of Note DATE: 10/10/17 TIME: 13:51 Assessment/Plan VTE Prophylaxis VTE Prophylaxis Intervention: ambulation Lines/Catheters IV Catheter Type (from Nrs): Peripheral IV Assessment/Plan Chief Complaint/Hosp Course 1. Chronic obstructive pulmonary disease exacerbation. 2. bilateral lower lobe pneumonia. 3. Hyponatremia. 4. Hypokalemia. 5. SIRS, better Problems: Assessment/Plan 1. continue breathing treatment. 2. continue a/b Subjective 24 Hr Interval Summary Constitutional: improved, no complaints Exam/Review of Systems Vital Signs Vitals Vital Signs Date Time Temp Pulse Resp B/P Pulse Ox O2 Delivery O2 Flow Rate FiO2 10/10/17 13:31 97 4.0 10/10/17 13:29 91 20 Nasal Cannula 10/10/17 12:24 98.3 123/64 10/07/17 12:25 28 Intake and Output 10/09/17 10/09/17 10/10/17 15:00 23:00 07:00 Intake Total 1400 ml 1200 ml Balance 1400 ml 1200 ml Exam Constitutional: alert, oriented Respiratory: diminished breath sounds Cardiovascular: regular rate and rhythm Gastrointestinal: soft Results Result Diagram: 10/09/17 0722 10/09/17 0724 Medications Medications Current Medications Albuterol (Ventolin Hfa) 2 puff Q4H PRN INH WHEEZING AND SOB Last administered on 10/08/17 19:08; Admin Dose 2 PUFF; Start 10/07/17 at 12:00 Montelukast Sodium (Singulair) 10 mg QHS PO Last administered on 10/09/17 21: 27; Admin Dose 10 MG; Start 10/07/17 at 21:00 Tiotropium [place] (Spiriva) 1 inh BID INH Last administered on 10/09/17 21:00 ; Admin Dose 1 INH; Start 10/07/17 at 21:00 Ondansetron HCl (Zofran Tab) 4 mg Q6H PRN PO NAUSEA AND/OR VOMITING; Start at 12:00 Acetaminophen (Tylenol Tab) 650 mg Q6H PRN PO PAIN LEVEL 1-3 OR FEVER Last administered on 10/10/17 01:50; Admin Dose 650 MG; Start 10/07/17 at 12:00 Docusate Sodium (Colace) 100 mg Q12H PRN PO CONSTIPATION; Start 10/07/17 at 12 :00 Magnesium Hydroxide (Milk Of Mag) 30 ml DAILY PRN PO CONSTIPATION; Start 10/07 at 12:00 Bisacodyl (Dulcolax) 5 mg DAILY PRN PO CONSTIPATION; Start 10/07/17 at 12:00 Enoxaparin Sodium (Lovenox) 40 mg DAILY SC ; Start 10/08/17 at 09:00 Methylprednisolone Sodium Succinate 60 mg 60 mg Q8 IV Last administered on 10/10 06:25; Admin Dose 60 MG; Start 10/07/17 at 14:00 Potassium Chloride/Sodium Chloride (/2 NS + KCl 20 Meq) 1,000 ml @ 50 mls/hr Q20H IV Last administered on 10/09/17 12:21; Admin Dose 50 MLS/HR; Start at 12:00 Acetaminophen/ Hydrocodone Bitart ([place] (5/325)) 1 tab BID PRN PO PAIN Last administered on 10/07/17 23:40; Admin Dose 1 TAB; Start 10/07/17 at 22:30 Guaifenesin/ Dextromethorphan (Robitussin Dm Liquid Cup) 10 ml Q4H PRN PO COUGH Last administered on 10/10/17 08:35; Admin Dose 10 ML; Start 10/08/17 at 17:00 Zolpidem Tartrate (Ambien) 5 mg HS PRN PO INSOMNIA Last administered on 21:19; Admin Dose 5 MG; Start 10/08/17 at 15:00 Pantoprazole 40 mg 40 mg DAILY@06 PO Last administered on 10/10/17 06:25; Admin Dose 40 MG; Start 10/09/17 at 06:00 Cefepime HCl (Maxipime 1gm/50 ml (Pmx)) 50 ml @ 100 mls/hr Q12 IVPB Last administered on 10/10/17 08:35; Admin Dose 100 MLS/HR; Start 10/09/17 at 21:00 Azithromycin (Zithromax) 500 mg DAILY PO Last administered on 10/10/17 08:36; Admin Dose 500 MG; Start 10/09/17 at 13:30 MILAGROS ACKERMAN Oct 10, 2017 13:53
--- NOTE | 2017-10-10 19:36 | CONS ---
Date/Time of Note Date/Time of Note DATE: 10/10/17 TIME: 19:35 Assessment/Plan Assessment/Plan Chief Complaint/Hosp Course SUBJECTIVE: No acute changes. Patient is alert, looks comfortable, feels better. No fevers. ANTIMICROBIALS: Cefepime, Zithromax. He is also getting IV steroids. PHYSICAL EXAMINATION: GENERAL: Well-developed, well-nourished middle-aged male who is in no distress. HEENT: Atraumatic, normocephalic. Sclerae anicteric. Buccal mucosa dry. NECK: Supple. CHEST: Rise symmetrical. Breath sounds clear, diminished to the right. HEART: S1, S2. ABDOMEN: Soft, bowel sounds present. EXTREMITIES: Without cyanosis or edema. ASSESSMENT: 1. Systemic inflammatory response syndrome. 2. Severe community-acquired pneumonia with hypoxemia. PLAN: Improving, continue abx, anticipate dc on oral Levaquin for 7 more days DW staff Problems: Consultation Date/Type/Reason Admit Date/Time Oct 07, 2017 at 04:33 Initial Consult Date Type of Consultation: ID Exam/Review of Systems Vital Signs Vitals Vital Signs Date Time Temp Pulse Resp B/P Pulse Ox O2 Delivery O2 Flow Rate FiO2 10/10/17 17:48 4.0 10/10/17 16:31 98.4 88 20 137/64 98 10/10/17 13:29 Nasal Cannula 10/07/17 12:25 28 Intake and Output 10/09/17 10/09/17 10/10/17 15:00 23:00 07:00 Intake Total 1400 ml 1200 ml Balance 1400 ml 1200 ml Results Result Diagram: 10/09/17 0722 10/09/17 0724 Medications Medications Current Medications Albuterol (Ventolin Hfa) 2 puff Q4H PRN INH WHEEZING AND SOB Last administered on 10/08/17 19:08; Admin Dose 2 PUFF; Start 10/07/17 at 12:00 Montelukast Sodium (Singulair) 10 mg QHS PO Last administered on 10/09/17 21: 27; Admin Dose 10 MG; Start 10/07/17 at 21:00 Tiotropium [place] (Spiriva) 1 inh BID INH Last administered on 10/09/17 21:00 ; Admin Dose 1 INH; Start 10/07/17 at 21:00 Ondansetron HCl (Zofran Tab) 4 mg Q6H PRN PO NAUSEA AND/OR VOMITING; Start at 12:00 Acetaminophen (Tylenol Tab) 650 mg Q6H PRN PO PAIN LEVEL 1-3 OR FEVER Last administered on 10/10/17 01:50; Admin Dose 650 MG; Start 10/07/17 at 12:00 Docusate Sodium (Colace) 100 mg Q12H PRN PO CONSTIPATION; Start 10/07/17 at 12 :00 Magnesium Hydroxide (Milk Of Mag) 30 ml DAILY PRN PO CONSTIPATION; Start 10/07 at 12:00 Bisacodyl (Dulcolax) 5 mg DAILY PRN PO CONSTIPATION; Start 10/07/17 at 12:00 Enoxaparin Sodium (Lovenox) 40 mg DAILY SC ; Start 10/08/17 at 09:00 Methylprednisolone Sodium Succinate 60 mg 60 mg Q8 IV Last administered on 10/10 14:00; Admin Dose 60 MG; Start 10/07/17 at 14:00 Potassium Chloride/Sodium Chloride (1/2 NS + KCl 20 Meq) 1,000 ml @ 50 mls/hr Q20H IV Last administered on 10/09/17 12:21; Admin Dose 50 MLS/HR; Start at 12:00 Acetaminophen/ Hydrocodone Bitart ([place] (5/325)) 1 tab BID PRN PO PAIN Last administered on 10/07/17 23:40; Admin Dose 1 TAB; Start 10/07/17 at 22:30 Guaifenesin/ Dextromethorphan (Robitussin Dm Liquid Cup) 10 ml Q4H PRN PO COUGH Last administered on 10/10/17 15:06; Admin Dose 10 ML; Start 10/08/17 at 17:00 Zolpidem Tartrate (Ambien) 5 mg HS PRN PO INSOMNIA Last administered on 21:19; Admin Dose 5 MG; Start 10/08/17 at 15:00 Pantoprazole 40 mg 40 mg DAILY@06 PO Last administered on 10/10/17 06:25; Admin Dose 40 MG; Start 10/09/17 at 06:00 Cefepime HCl (Maxipime 1gm/50 ml (Pmx)) 50 ml @ 100 mls/hr Q12 IVPB Last administered on 10/10/17 08:35; Admin Dose 100 MLS/HR; Start 10/09/17 at 21:00 Azithromycin (Zithromax) 500 mg DAILY PO Last administered on 10/10/17 08:36; Admin Dose 500 MG; Start 10/09/17 at 13:30 NATALI RIVERA NP Oct 10, 2017 19:36
[2017-10-10] MEDS: 1/2 NS + KCL 20 MEQ 1,000 ML IV SCH (20:00)
[2017-10-10] MEDS: MONTELUKAST 10 MG TAB PO SCH (21:58)
[2017-10-11] VITALS (10 sets, daily range): BP systolic 130–158; BP diastolic 72–89; PULSE 71–109; RESP 18–20
[2017-10-11] MEDS: PANTOPRAZOLE (EC) 40 MG TAB PO SCH (05:43)
[2017-10-11] MEDS: METHYLPREDNISOLONE 125 MG INJ IV SCH ×3 (05:43→21:29)
--- NOTE | 2017-10-11 07:13 | PN ---
DATE: 10/09/2017 INFECTIOUS DISEASE PROGRESS NOTE SUBJECTIVE: No acute changes. Patient is alert, comfortable on 4 liters nasal cannula, feels wilfrid r. No fevers. LABORATORY DATA: WBC 15.8, H and H 13.1 and 39.8, platelets 362, neutrophils 87.5, BUN 15, creatini ne 0.86. ANTIMICROBIALS: Patient is on Zosyn. He is also getting IV steroids. PHYSICAL EXAMINATION: GENERAL: Well-developed, well-nourished middle-aged male who is in no distress. HEENT: Atraumatic, normocephalic. Sclerae anicteric. Buccal mucosa dry. NECK: Supple. CHEST: Rise symmetrical. Breath sounds clear, diminished to the right. HEART: S1, S2. ABDOMEN: Soft, bowel sounds present. EXTREMITIES: Without cyanosis or edema. ASSESSMENT: 1. Systemic inflammatory response syndrome. 2. Severe community-acquired pneumonia with hypoxemia. 3. ____. PLAN: The patient remains stable. We're going to change antibiotics to cefepime, add Zithromax. M onitor his chest x-ray. Continue steroid taper, await for clinical improvement. Dictated By: NATALI RIVERA NIGHT MANAGER for CATALINA RAMÍREZ MD NI/NTS Conf#: [id number] DID#: [id number] CC: ROMY MARAVILLA MD;*EndCC*
[2017-10-11] MEDS: 1/2 NS + KCL 20 MEQ 1,000 ML IV SCH (08:51)
[2017-10-11] MEDS: CEFEPIME 1GM/50 ML (PMX) 50 ML IVPB SCH ×2 (08:51→21:32)
[2017-10-11] MEDS: ENOXAPARIN 40 MG/0.4 ML SYG SC SCH (09:00)
[2017-10-11] MEDS: AZITHROMYCIN 250 MG TAB PO SCH (09:15)
[2017-10-11] MEDS: HYDROCODONE/APAP (5/325) TAB PO PRN (09:16)
[2017-10-11] MEDS: GUAIFENESIN/DM 5ML CUP PO PRN ×2 (09:17→21:42)
[2017-10-11] MEDS: TIOTROPIUM 18 MCG CAPSULE INHA DEV INH SCH ×2 (09:25→21:32)
--- NOTE | 2017-10-11 14:57 | CONS ---
Date/Time of Note Date/Time of Note DATE: 10/11/17 TIME: 14:56 Assessment/Plan Assessment/Plan Chief Complaint/Hosp Course SUBJECTIVE: No acute changes. Patient is alert, comfortable on RA, no fevers. ANTIMICROBIALS: Cefepime, Zithromax. PHYSICAL EXAMINATION: GENERAL: Well-developed, well-nourished middle-aged male who is in no distress. HEENT: Atraumatic, normocephalic. Sclerae anicteric. Buccal mucosa dry. NECK: Supple. CHEST: Rise symmetrical. Breath sounds clear, diminished to the right. HEART: S1, S2. ABDOMEN: Soft, bowel sounds present. EXTREMITIES: Without cyanosis or edema. ASSESSMENT: 1. Systemic inflammatory response syndrome. 2. Severe community-acquired pneumonia with hypoxemia. PLAN: Improving, continue abx, anticipate dc on oral Levaquin for 7 more days DW staff Problems: Consultation Date/Type/Reason Admit Date/Time Oct 07, 2017 at 04:33 Type of Consultation: ID Exam/Review of Systems Vital Signs Vitals Vital Signs Date Time Temp Pulse Resp B/P Pulse Ox O2 Delivery O2 Flow Rate FiO2 10/11/17 12:09 82 10/11/17 11:38 98.1 20 158/89 96 10/11/17 07:59 Nasal Cannula 2.0 10/07/17 12:25 28 Intake and Output 10/10/17 10/10/17 10/11/17 15:00 23:00 07:00 Intake Total 1200 ml Balance 1200 ml Results Result Diagram: 10/09/17 0722 10/09/17 0724 Medications Medications Current Medications Albuterol (Ventolin Hfa) 2 puff Q4H PRN INH WHEEZING AND SOB Last administered on 10/08/17 19:08; Admin Dose 2 PUFF; Start 10/07/17 at 12:00 Montelukast Sodium (Singulair) 10 mg QHS PO Last administered on 10/10/17 21: 58; Admin Dose 10 MG; Start 10/07/17 at 21:00 Tiotropium [place] (Spiriva) 1 inh BID INH Last administered on 10/11/17 09:25 ; Admin Dose 1 INH; Start 10/07/17 at 21:00 Ondansetron HCl (Zofran Tab) 4 mg Q6H PRN PO NAUSEA AND/OR VOMITING; Start at 12:00 Acetaminophen (Tylenol Tab) 650 mg Q6H PRN PO PAIN LEVEL 1-3 OR FEVER Last administered on 10/10/17 01:50; Admin Dose 650 MG; Start 10/07/17 at 12:00 Docusate Sodium (Colace) 100 mg Q12H PRN PO CONSTIPATION; Start 10/07/17 at 12 :00 Magnesium Hydroxide (Milk Of Mag) 30 ml DAILY PRN PO CONSTIPATION; Start 10/07 at 12:00 Bisacodyl (Dulcolax) 5 mg DAILY PRN PO CONSTIPATION; Start 10/07/17 at 12:00 Enoxaparin Sodium (Lovenox) 40 mg DAILY SC ; Start 10/08/17 at 09:00 Methylprednisolone Sodium Succinate 60 mg 60 mg Q8 IV Last administered on 10/11 14:16; Admin Dose 60 MG; Start 10/07/17 at 14:00 Potassium Chloride/Sodium Chloride (1/2 NS + KCl 20 Meq) 1,000 ml @ 50 mls/hr Q20H IV Last administered on 10/11/17 08:51; Admin Dose 50 MLS/HR; Start at 12:00 Acetaminophen/ Hydrocodone Bitart ([place] (5/325)) 1 tab BID PRN PO PAIN Last administered on 10/11/17 09:16; Admin Dose 1 TAB; Start 10/07/17 at 22:30 Guaifenesin/ Dextromethorphan (Robitussin Dm Liquid Cup) 10 ml Q4H PRN PO COUGH Last administered on 10/11/17 09:17; Admin Dose 10 ML; Start 10/08/17 at 17:00 Zolpidem Tartrate (Ambien) 5 mg HS PRN PO INSOMNIA Last administered on 21:19; Admin Dose 5 MG; Start 10/08/17 at 15:00 Pantoprazole 40 mg 40 mg DAILY@06 PO Last administered on 10/11/17 05:43; Admin Dose 40 MG; Start 10/09/17 at 06:00 Cefepime HCl (Maxipime 1gm/50 ml (Pmx)) 50 ml @ 100 mls/hr Q12 IVPB Last administered on 10/11/17 08:51; Admin Dose 100 MLS/HR; Start 10/09/17 at 21:00 Azithromycin (Zithromax) 500 mg DAILY PO Last administered on 10/11/17t 09:15; Admin Dose 500 MG; Start 10/09/17 at 13:30 NATALI RIVERA NP Oct 11, 2017 14:57
[2017-10-11] MEDS ORDERED: FUROSEMIDE 20 MG INJ ONE (17:00)
--- NOTE | 2017-10-11 17:03 | RADRPT ---
PROCEDURE: CT chest without contrast CLINICAL INDICATION: Cough. Shortness of breath. Tobacco smoking history. TECHNIQUE: CT scan of the chest without contrast was performed on a multidetector high-resolution C T scanner. Coronal and sagittal reformatted images were obtained from the axial source images. The exam CTDI by series is 7.94 mGy, and the total exam DLP is 337.56 mGy-cm. DICOM images are availabl e. One or more of the following dose reduction techniques were used: Automated exposure control. Adjustment of the mA and/or kV according to patient size. Use of iterative reconstruction technique. COMPARISON: Portable chest radiograph 10/10/2017 FINDINGS: Coronary artery calcifications are compatible with coronary atherosclerotic changes. Cardiac size i s within normal limits. No abnormal pericardial thickening; physiologic amount of pericardial fluid . Atherosclerotic changes of the thoracic aorta including the arch, proximal great vessels, and visual ized upper abdominal aorta. Common origin of the brachiocephalic artery and left common carotid raymond ry, a normal variant. Lower trachea anterior tiny out pouching may be secondary to diverticulum. Small right pleural effusion; tiny left pleural effusion. Moderate number of small to slightly enlarged mediastinal lymph nodes. Bilateral upper lung zones heterogeneity most likely secondary to mild centrilobular emphysema. Right upper lobe and right middle lobe areas of consolidation with associated air bronchograms inclu ding an area that abuts the minor and major fissures. Other patchy bilateral areas of ground-glass o pacity and consolidation as well as bilateral small nodular opacities; one of these areas of consoli dation in the right upper lobe abuts slightly thickened pleura. Punctate calcification in the right lower lung zone, but it is not certain if this is parenchymal or pleural. Bilateral subsegmental bro nchial wall mild to moderate thickening, likely infectious/inflammatory. Bilateral perirenal edema/fluid is nonspecific. Asymmetry of the diaphragmatic tonio with the right b eing thicker. Spondylosis of the visualized spine. T7 vertebral body abnormality probably is secondary to Schmorl node, though fracture (of uncertain age) is also in the differential diagnosis. IMPRESSION: 1. Right upper lobe and right middle lobe areas of consolidation with associated air bronchograms. Other patchy bilateral areas of ground-glass opacity and consolidation as well as bilateral small no dular opacities; one of these areas of consolidation in the right upper lobe abuts slightly thickene d pleura. Differential considerations include infection/inflammation as well as neoplasm. 2. Small right pleural effusion; tiny left pleural effusion. Small to slightly enlarged mediastinal lymph nodes. Findings most likely secondary to mild centrilobular emphysema. 3. Asymmetry of the diaphragmatic tonio with the right being thicker, a finding of uncertain etiolog y and clinical significance. Short interval follow-up imaging is recommended. RPTAT: TT Physician Alyce Date Time Electronically viewed and signed by Evelina Egan Physician on 10/11/2017 17:03 JS/
--- NOTE | 2017-10-11 17:05 | PN ---
Date/Time of Note Date/Time of Note DATE: 10/11/17 TIME: 17:04 Assessment/Plan VTE Prophylaxis VTE Prophylaxis Intervention: other Lines/Catheters IV Catheter Type (from Nrsg): Peripheral IV Assessment/Plan Chief Complaint/Hosp Course PNEUMONIA COPD HTN PLAN DEC IV LASIX CT CHEST Problems: Subjective 24 Hr Interval Summary Respiratory: shortness of breath (+) Exam/Review of Systems Vital Signs Vitals Vital Signs Date Time Temp Pulse Resp B/P Pulse Ox O2 Delivery O2 Flow Rate FiO2 10/11/17 16:03 85 10/11/17 15:25 97.9 20 147/80 98 10/11/17 15:07 Nasal Cannula 2.0 10/07/17 12:25 28 Intake and Output 10/10/17 10/10/17 10/11/17 15:00 23:00 07:00 Intake Total 1200 ml Balance 1200 ml Exam Neck: supple Respiratory: clear to auscultation Cardiovascular: regular rate and rhythm Gastrointestinal: bowel sounds (+), soft Extremities: normal pulses Results Result Diagram: 10/09/1772110/09/17 0724 Medications Medications Current Medications Albuterol (Ventolin Hfa) 2 puff Q4H PRN INH WHEEZING AND SOB Last administered on 10/08/17 19:08; Admin Dose 2 PUFF; Start 10/07/17 at 12:00 Montelukast Sodium (Singulair) 10 mg QHS PO Last administered on 10/10/17 21: 58; Admin Dose 10 MG; Start 10/07/17 at 21:00 Tiotropium [place] (Spiriva) 1 inh BID INH Last administered on 10/11/17 09:25 ; Admin Dose 1 INH; Start 10/07/17 at 21:00 Ondansetron HCl (Zofran Tab) 4 mg Q6H PRN PO NAUSEA AND/OR VOMITING; Start at 12:00 Acetaminophen (Tylenol Tab) 650 mg Q6H PRN PO PAIN LEVEL 1-3 OR FEVER Last administered on 10/10/17 01:50; Admin Dose 650 MG; Start 10/07/17 at 12:00 Docusate Sodium (Colace) 100 mg Q12H PRN PO CONSTIPATION; Start 10/07/17 at 12 :00 Magnesium Hydroxide (Milk Of Mag) 30 ml DAILY PRN PO CONSTIPATION; Start 10/07 at 12:00 Bisacodyl (Dulcolax) 5 mg DAILY PRN PO CONSTIPATION; Start 10/07/17 at 12:00 Enoxaparin Sodium 40 mg 40 mg DAILY SC ; Start 10/08/17 at 09:00 Potassium Chloride/Sodium Chloride (1/2 NS + KCl 20 Meq) 1,000 ml @ 20 mls/hr Q24H IV Last administered on 10/11/17 08:51; Admin Dose 50 MLS/HR; Start at 12:00 Acetaminophen/ Hydrocodone Bitart ([place] (5/325)) 1 tab BID PRN PO PAIN Last administered on 10/11/17 09:16; Admin Dose 1 TAB; Start 10/07/17 at 22:30 Guaifenesin/ Dextromethorphan (Robitussin Dm Liquid Cup) 10 ml Q4H PRN PO COUGH Last administered on 10/11/17 09:17; Admin Dose 10 ML; Start 10/08/17 at 17:00 Zolpidem Tartrate (Ambien) 5 mg HS PRN PO INSOMNIA Last administered on 21:19; Admin Dose 5 MG; Start 10/08/17 at 15:00 Pantoprazole 40 mg 40 mg DAILY@06 PO Last administered on 10/11/17 05:43; Admin Dose 40 MG; Start 10/09/17 at 06:00 Cefepime HCl (Maxipime 1gm/50 ml (Pmx)) 50 ml @ 100 mls/hr Q12 IVPB Last administered on 10/11/17 08:51; Admin Dose 100 MLS/HR; Start 10/09/17 at 21:00 Azithromycin (Zithromax) 500 mg DAILY PO Last administered on 10/11/17 09:15; Admin Dose 500 MG; Start 10/09/17 at 13:30 Methylprednisolone Sodium Succinate (Solu-Medrol) 40 mg BID IV ; Start 10/11/17 at 21:00 ROMY MARAVILLA MD Oct 11, 2017 17:05
[2017-10-11] MEDS: FUROSEMIDE 20 MG INJ IV SCH ×2 (17:57→21:30)
[2017-10-11] MEDS: MONTELUKAST 10 MG TAB PO SCH (21:31)
[2017-10-11] MEDS: ACETAMINOPHEN 325 MG TAB PO PRN (21:42)
[2017-10-12] VITALS (12 sets, daily range): BP systolic 134–152; BP diastolic 72–89; PULSE 64–89; RESP 17–20
[2017-10-12] MEDS: PANTOPRAZOLE (EC) 40 MG TAB PO SCH (06:09)
[2017-10-12] MEDS: ENOXAPARIN 40 MG/0.4 ML SYG SC SCH (09:00)
[2017-10-12] MEDS: AZITHROMYCIN 250 MG TAB PO SCH (09:25)
[2017-10-12] MEDS: METHYLPREDNISOLONE 125 MG INJ IV SCH ×2 (09:25→20:36)
[2017-10-12] MEDS: ACETAMINOPHEN 325 MG TAB PO PRN (09:26)
[2017-10-12] MEDS: CEFEPIME 1GM/50 ML (PMX) 50 ML IVPB SCH ×2 (09:26→20:43)
--- NOTE | 2017-10-12 11:58 | CONS ---
Date/Time of Note Date/Time of Note DATE: 10/12/17 TIME: 11:53 Assessment/Plan Assessment/Plan Additional Assessment/Plan Assessment and recommendations; 1. Patient admitted with right lower lobe pneumonia. CT imaging of the chest from yesterday showing patchy infiltrates most involving the right lower lobe. 2. History of asthma/COPD. 3. History of hypertension. Continue current treatment. Patient responding well to current treatment regimen. Consider stopping diuretics. Consultation Date/Type/Reason Admit Date/Time Oct 07, 2017 at 04:33 Date of Consultation: Oct 12, 2017 Type of Consultation: Pulmonary Reason for Consultation Pulmonary consultation requested for evaluation of right lower lobe pneumonia. History of presenting illness; patient is a pleasant 47-year-old male who was admitted on the of last month with a two-week history of chest congestion, coughing and sputum production with wheezing. Upon further evaluation a chest x -ray was done which is showing right lower lobe pneumonia. Patient has been started on appropriate antibiotic regimen and according to him he is markedly improved over the last few days. He complains of occasional cough with scant sputum production. Denies any further wheezing. Denies any chest pain, fever or chills. According to the patient he was fine until symptoms started 2 weeks ago. Past medical history; 1. Patient with history of COPD/asthma. 2. History of hypertension. 3. History of pneumonia 6 months ago without any prior episodes. 4. No surgeries. Medications; reviewed. Allergies; none. Social history; patient quit smoking just 2 years ago. Has a [id number] smoking history. No show any alcohol or drug abuse. Family history; single. No history of any illnesses in the family. 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 He does not have any hobbies or any pets. Review of systems; denies any headache, visual changes, sinus symptoms. Denies any chest pain, nausea, vomiting. Any fever or chills. Complains of scant cough with scant sputum production. Denies any wheezing. Denies any abdominal pain, any melena or hematochezia. Any orthopnea. Any edema. General exam; young male, awake alert, currently in no distress. Social History Smoking Status: Former smoker Exam/Review of Systems Vital Signs Vitals Vital Signs Date Time Temp Pulse Resp B/P Pulse Ox O2 Delivery O2 Flow Rate FiO2 10/12/17 11:23 97.9 79 17 134/72 96 10/11/17 20:00 Nasal Cannula 2.0 Intake and Output 10/11/17 10/11/17 10/12/17 14:59 22:59 06:59 Intake Total 2600 ml 1200 ml Balance 2600 ml 1200 ml Exam HEENT exam; supple neck, no JVD. No lymphadenopathy. Midline trachea. No thyromegaly. Patient has good dentition. Pupils are midsize and reactive to light. Chest exam; clear to auscultation. S1-S2 audible, no murmurs. Regular rhythm. Abdomen exam; soft, nontender. No organomegaly. Bowel sounds audible. Extremity exam; no edema. No clubbing. OFFSET PRESSMAN exam; no focal deficit. Results Result Diagram: 10/09/1772110/09/17 0724 Medications Medications Current Medications Albuterol (Ventolin Hfa) 2 puff Q4H PRN INH WHEEZING AND SOB Last administered on 10/08/17 19:08; Admin Dose 2 PUFF; Start 10/07/17 at 12:00 Montelukast Sodium (Singulair) 10 mg QHS PO Last administered on 10/11/17 21: 31; Admin Dose 10 MG; Start 10/07/17 at 21:00 Tiotropium [place] (Spiriva) 1 inh BID INH Last administered on 10/11/17 21:32 ; Admin Dose 1 INH; Start 10/07/17 at 21:00 Ondansetron HCl (Zofran Tab) 4 mg Q6H PRN PO NAUSEA AND/OR VOMITING; Start at 12:00 Acetaminophen (Tylenol Tab) 650 mg Q6H PRN PO PAIN LEVEL 1-3 OR FEVER Last administered on 10/12/17 09:26; Admin Dose 650 MG; Start 10/07/17 at 12:00 Docusate Sodium (Colace) 100 mg Q12H PRN PO CONSTIPATION; Start 10/07/17 at 12 :00 Magnesium Hydroxide (Milk Of Mag) 30 ml DAILY PRN PO CONSTIPATION; Start 10/07 at 12:00 Bisacodyl (Dulcolax) 5 mg DAILY PRN PO CONSTIPATION; Start 10/07/17 at 12:00 Enoxaparin Sodium 40 mg 40 mg DAILY SC ; Start 10/08/17 at 09:00 Potassium Chloride/Sodium Chloride (1/2 NS + KCl 20 Meq) 1,000 ml @ 20 mls/hr Q24H IV Last administered on 10/11/17 08:51; Admin Dose 50 MLS/HR; Start at 12:00 Acetaminophen/ Hydrocodone Bitart ([place] (5/325)) 1 tab BID PRN PO PAIN Last administered on 10/11/17 09:16; Admin Dose 1 TAB; Start 10/07/17 at 22:30 Guaifenesin/ Dextromethorphan (Robitussin Dm Liquid Cup) 10 ml Q4H PRN PO COUGH Last administered on 10/11/17 21:42; Admin Dose 10 ML; Start 10/08/17 at 17:00 Zolpidem Tartrate (Ambien) 5 mg HS PRN PO INSOMNIA Last administered on 21:19; Admin Dose 5 MG; Start 10/08/17 at 15:00 Pantoprazole 40 mg 40 mg DAILY@06 PO Last administered on 10/12/17 06:09; Admin Dose 40 MG; Start 10/09/17 at 06:00 Cefepime HCl (Maxipime 1gm/50 ml (Pmx)) 50 ml @ 100 mls/hr Q12 IVPB Last administered on 10/12/17 09:26; Admin Dose 100 MLS/HR; Start 10/09/17 at 21:00 Azithromycin (Zithromax) 500 mg DAILY PO Last administered on 10/12/17 09:25; Admin Dose 500 MG; Start 10/09/17 at 13:30 Methylprednisolone Sodium Succinate (Solu-Medrol) 40 mg BID IV Last administered on 10/12/17 09:25; Admin Dose 40 MG; Start 10/11/17 at 21:00 NICOLE OVIEDO Oct 12, 2017 11:58
--- NOTE | 2017-10-12 13:31 | PN ---
DATE: 10/12/2017 SUBJECTIVE: No acute changes. The patient is awake, looks comfortable, denies pain, no fevers. VITAL SIGNS: Temperature 97.9, pulse 79, respirations 17, blood pressure 134/72, saturation 96% on 2 liters. LABORATORY DATA: No labs this morning. DIAGNOSTICS: 1. CT of the chest yesterday revealed right upper lobe and right middle lobe areas consolidation wi th associated air bronchograms. Other consideration includes infection as well as neoplasm, small r ight pleural effusion, tiny left pleural effusion, asymmetry of cross with the right being thi cker, finding of uncertain etiology and clinical significance. ANTIMICROBIALS: Patient remains on: 1. Zithromax 2. Cefepime. PHYSICAL EXAMINATION: GENERAL: This is well-developed, middle-aged man who is alert, in no distress. HEENT: Head atraumatic, normocephalic. Sclerae anicteric. Buccal mucosa pink. NECK: Supple. CHEST: Rise symmetrical. Breath sounds diminished to the right. HEART: S1, S2. ABDOMEN: Soft, bowel tones present. EXTREMITIES: Without cyanosis or edema. ASSESSMENT: 1. Right-sided community-acquired pneumonia. 2. History of asthma and chronic obstructive pulmonary disease. 3. Hypertension. 4. Systemic inflammatory response syndrome. PLAN: The patient remains stable. Continue present care. Anticipate discharge on oral Levaquin wh en medically cleared. Pulmonary recommendations appreciated. Dictated By: NATALI RIVERA RUBBER BALL FINISHER for [employer] GALVEZ/[place] Conf#: [id number] DID#: [id number]
[2017-10-12] MEDS: 1/2 NS + KCL 20 MEQ 1,000 ML IV SCH (13:56)
[2017-10-12] MEDS: TIOTROPIUM 18 MCG CAPSULE INHA DEV INH SCH ×2 (17:18→20:36)
[2017-10-12] MEDS: FUROSEMIDE 20 MG INJ IV SCH (17:19)
[2017-10-12] MEDS: GUAIFENESIN/DM 5ML CUP PO PRN (17:24)
--- NOTE | 2017-10-12 20:33 | PN ---
Date/Time of Note Date/Time of Note DATE: 10/12/17 TIME: 20:32 Assessment/Plan VTE Prophylaxis VTE Prophylaxis Intervention: other Lines/Catheters IV Catheter Type (from Nrsg): Peripheral IV Assessment/Plan Chief Complaint/Hosp Course PNEUMONIA COPD HTN PLAN DEC IV LASIX CT CHEST SEEN ANTIBIOTIC Problems: Subjective 24 Hr Interval Summary Respiratory: shortness of breath (+) Cardiovascular: no complaints Gastrointestinal: no complaints Exam/Review of Systems Vital Signs Vitals Vital Signs Date Time Temp Pulse Resp B/P Pulse Ox O2 Delivery O2 Flow Rate FiO2 10/12/17 20:13 86 10/12/17 19:45 98.0 20 136/82 93 10/12/17 12:00 Nasal Cannula 2.0 Intake and Output 10/11/17 10/11/17 10/12/17 15:00 23:00 07:00 Intake Total 2600 ml 1200 ml Balance 2600 ml 1200 ml Exam Neck: supple Respiratory: clear to auscultation Cardiovascular: regular rate and rhythm Gastrointestinal: soft Musculoskeletal: nl extremities to inspection Extremities: normal pulses Results Result Diagram: 10/09/1772110/09/17 0724 Medications Medications Current Medications Albuterol (Ventolin Hfa) 2 puff Q4H PRN INH WHEEZING AND SOB Last administered on 10/08/17 19:08; Admin Dose 2 PUFF; Start 10/07/17 at 12:00 Montelukast Sodium (Singulair) 10 mg QHS PO Last administered on 10/11/17 21: 31; Admin Dose 10 MG; Start 10/07/17 at 21:00 Tiotropium [place] (Spiriva) 1 inh BID INH Last administered on 10/12/17 17:18 ; Admin Dose 1 INH; Start 10/07/17 at 21:00 Ondansetron HCl (Zofran Tab) 4 mg Q6H PRN PO NAUSEA AND/OR VOMITING; Start at 12:00 Acetaminophen (Tylenol Tab) 650 mg Q6H PRN PO PAIN LEVEL 1-3 OR FEVER Last administered on 10/12/17 09:26; Admin Dose 650 MG; Start 10/07/17 at 12:00 Docusate Sodium (Colace) 100 mg Q12H PRN PO CONSTIPATION; Start 10/07/17 at 12 :00 Magnesium Hydroxide (Milk Of Mag) 30 ml DAILY PRN PO CONSTIPATION; Start 10/07 at 12:00 Bisacodyl (Dulcolax) 5 mg DAILY PRN PO CONSTIPATION; Start 10/07/17 at 12:00 Enoxaparin Sodium 40 mg 40 mg DAILY SC ; Start 10/08/17 at 09:00 Potassium Chloride/Sodium Chloride (1/2 NS + KCl 20 Meq) 1,000 ml @ 20 mls/hr Q24H IV Last administered on 10/12/17 13:56; Admin Dose 20 MLS/HR; Start at 12:00 Acetaminophen/ Hydrocodone Bitart ([place] (5/325)) 1 tab BID PRN PO PAIN Last administered on 10/11/17 09:16; Admin Dose 1 TAB; Start 10/07/17 at 22:30 Guaifenesin/ Dextromethorphan (Robitussin Dm Liquid Cup) 10 ml Q4H PRN PO COUGH Last administered on 10/12/17 17:24; Admin Dose 10 ML; Start 10/08/17 at 17:00 Zolpidem Tartrate (Ambien) 5 mg HS PRN PO INSOMNIA Last administered on 21:19; Admin Dose 5 MG; Start 10/08/17 at 15:00 Pantoprazole 40 mg 40 mg DAILY@06 PO Last administered on 10/12/17 06:09; Admin Dose 40 MG; Start 10/09/17 at 06:00 Cefepime HCl (Maxipime 1gm/50 ml (Pmx)) 50 ml @ 100 mls/hr Q12 IVPB Last administered on 10/12/17 09:26; Admin Dose 100 MLS/HR; Start 10/09/17 at 21:00 Azithromycin (Zithromax) 500 mg DAILY PO Last administered on 10/12/17 09:25; Admin Dose 500 MG; Start 10/09/17 at 13:30 Methylprednisolone Sodium Succinate (Solu-Medrol) 40 mg BID IV Last administered on 10/12/17 09:25; Admin Dose 40 MG; Start 10/11/17 at 21:00 ROMY MARAVILLA MD Oct 12, 2017 20:33
[2017-10-12] MEDS: MONTELUKAST 10 MG TAB PO SCH (20:36)
[2017-10-13] VITALS (7 sets, daily range): BP systolic 144–149; BP diastolic 74–88; PULSE 65–87; RESP 17–20
[2017-10-13] MEDS: PANTOPRAZOLE (EC) 40 MG TAB PO SCH (05:51)
[2017-10-13] MEDS: FUROSEMIDE 20 MG INJ IV SCH (05:52)
[2017-10-13] MEDS: GUAIFENESIN/DM 5ML CUP PO PRN (05:58)
[2017-10-13] MEDS: ALBUTEROL/IPRATROPIUM (NEB) 3 ML AMP HHN PRN ×2 (06:00→12:27)
[2017-10-13] MEDS: AZITHROMYCIN 250 MG TAB PO SCH (08:22)
[2017-10-13] MEDS: METHYLPREDNISOLONE 125 MG INJ IV SCH (08:23)
[2017-10-13] MEDS: TIOTROPIUM 18 MCG CAPSULE INHA DEV INH SCH (08:33)
[2017-10-13] MEDS: CEFEPIME 1GM/50 ML (PMX) 50 ML IVPB SCH (08:38)
[2017-10-13] MEDS: ENOXAPARIN 40 MG/0.4 ML SYG SC SCH (08:41)
--- NOTE | 2017-10-13 09:51 | CONS ---
Date/Time of Note Date/Time of Note DATE: 10/13/17 TIME: 09:49 Assessment/Plan Assessment/Plan Additional Assessment/Plan Assessment and recommendations; 1. Patient admitted with right lower lobe community acquired pneumonia with marked clinical improvement. 2. history of COPD. 3. History of hypertension. 4. Patient is a current smoker. Agree with discharging the patient home. I would recommend sending him home on Zithromax with doxycycline for 1 week. Patient does have a primary care physician and a follow-up chest x-ray is recommended in about a weeks time. This was discussed with the patient and he agreed for follow-up chest x-ray in about a week's time. Patient also was counseled not to resume smoking. Consultation Date/Type/Reason Admit Date/Time Oct 07, 2017 at 04:33 Initial Consult Date 10/12/17 Type of Consultation: Pulmonary 24 HR Interval Summary Free Text/Dictation Patient's condition is stable. Denies any shortness of breath. She complains of cough with very minimal chest congestion. Denies any chest pain, fever or chills. General exam; young male, awake alert, currently in no distress. Exam/Review of Systems Vital Signs Vitals Vital Signs Date Time Temp Pulse Resp B/P Pulse Ox O2 Delivery O2 Flow Rate FiO2 10/13/17 08:19 97.7 92 17 144/74 95 10/13/17 06:00 Nasal Cannula 3.0 Intake and Output 10/12/17 10/12/17 10/13/17 15:00 23:00 07:00 Intake Total 50 ml 1740 ml 120 ml Balance 50 ml 1740 ml 120 ml Exam HEENT exam; supple neck, no JVD. No lymphadenopathy. Midline trachea. No thyromegaly. Patient has fair dentition. Chest exam; clear to auscultation. S1-S2 audible, no murmurs. Regular rhythm. Abdomen exam; soft, nontender. No organomegaly. Bowel sounds audible. Extremity exam; no edema. PEELER OPERATOR exam; no deficit. Results Result Diagram: 10/09/17 0722 10/09/17 0724 Medications Medications Current Medications Albuterol (Ventolin Hfa) 2 puff Q4H PRN INH WHEEZING AND SOB Last administered on 10/08/17t 19:08; Admin Dose 2 PUFF; Start 10/07/17 at 12:00 Montelukast Sodium (Singulair) 10 mg QHS PO Last administered on 10/12/17 20: 36; Admin Dose 10 MG; Start 10/07/17 at 21:00 Tiotropium [place] (Spiriva) 1 inh BID INH Last administered on 10/13/17 08:33 ; Admin Dose 1 INH; Start 10/07/17 at 21:00 Ondansetron HCl (Zofran Tab) 4 mg Q6H PRN PO NAUSEA AND/OR VOMITING; Start at 12:00 Acetaminophen (Tylenol Tab) 650 mg Q6H PRN PO PAIN LEVEL 1-3 OR FEVER Last administered on 10/12/17 09:26; Admin Dose 650 MG; Start 10/07/17 at 12:00 Docusate Sodium (Colace) 100 mg Q12H PRN PO CONSTIPATION; Start 10/07/17 at 12 :00 Magnesium Hydroxide (Milk Of Mag) 30 ml DAILY PRN PO CONSTIPATION; Start 10/07 at 12:00 Bisacodyl (Dulcolax) 5 mg DAILY PRN PO CONSTIPATION; Start 10/07/17 at 12:00 Enoxaparin Sodium 40 mg 40 mg DAILY SC ; Start 10/08/17 at 09:00 Potassium Chloride/Sodium Chloride (1/2 NS + KCl 20 Meq) 1,000 ml @ 20 mls/hr Q24H IV Last administered on 10/12/17 13:56; Admin Dose 20 MLS/HR; Start at 12:00 Acetaminophen/ Hydrocodone Bitart ([place] (5/325)) 1 tab BID PRN PO PAIN Last administered on 10/11/17 09:16; Admin Dose 1 TAB; Start 10/07/17 at 22:30 Guaifenesin/ Dextromethorphan (Robitussin Dm Liquid Cup) 10 ml Q4H PRN PO COUGH Last administered on 10/13/17 05:58; Admin Dose 10 ML; Start 10/08/17 at 17:00 Zolpidem Tartrate (Ambien) 5 mg HS PRN PO INSOMNIA Last administered on 21:19; Admin Dose 5 MG; Start 10/08/17 at 15:00 Pantoprazole 40 mg 40 mg DAILY@06 PO Last administered on 10/13/17 05:51; Admin Dose 40 MG; Start 10/09/17 at 06:00 Cefepime HCl (Maxipime 1gm/50 ml (Pmx)) 50 ml @ 100 mls/hr Q12 IVPB Last administered on 10/13/17 08:38; Admin Dose 100 MLS/HR; Start 10/09/17 at 21:00 Azithromycin (Zithromax) 500 mg DAILY PO Last administered on 10/13/17 08:22; Admin Dose 500 MG; Start 10/09/17 at 13:30 Methylprednisolone Sodium Succinate (Solu-Medrol) 40 mg BID IV Last administered on 10/13/17 08:23; Admin Dose 40 MG; Start 10/11/17 at 21:00 NICOLE OVIEDO Oct 13, 2017 09:51
--- NOTE | 2017-10-13 11:29 | PDOCDIS ---
Discharge Instructions CONDITION Patient Condition: Stable HOME CARE INSTRUCTIONS: Special Diet: cardiac ACTIVITY: Activity Restrictions: Slowly Increase Activity FOLLOW UP/APPOINTMENTS Follow-up Plan f/u own pcp [address] boyer by pcp referral hmo ROMY MARAVILLA MD Oct 13, 2017 11:29
[2017-10-13] MEDS ORDERED: MED4DP PO (11:33)
[2017-10-13] MEDS ORDERED: AZIT250T6 PO (11:33)
[2017-10-13] MEDS ORDERED: BISA5TAB6 PO (11:33)
[2017-10-13] MEDS ORDERED: DOXY-220 PO (11:33)
--- NOTE | 2017-10-13 13:57 | CONS ---
Date/Time of Note Date/Time of Note DATE: 10/13/17 TIME: 13:56 Assessment/Plan Assessment/Plan Chief Complaint/Hosp Course SUBJECTIVE: No acute changes. Patient is alert, comfortable on RA, no fevers. ANTIMICROBIALS: Cefepime, Zithromax. PHYSICAL EXAMINATION: GENERAL: Well-developed, well-nourished middle-aged male who is in no distress. HEENT: Atraumatic, normocephalic. Sclerae anicteric. Buccal mucosa dry. NECK: Supple. CHEST: Rise symmetrical. Breath sounds clear, diminished to the right. HEART: S1, S2. ABDOMEN: Soft, bowel sounds present. EXTREMITIES: Without cyanosis or edema. ASSESSMENT: 1. Systemic inflammatory response syndrome. 2. Severe community-acquired pneumonia with hypoxemia. PLAN: Doing better, as per [facility] pulmonary team ok dc on Levaquin and Doxycycline for 7 more days [facility] staff Problems: Consultation Date/Type/Reason Admit Date/Time Oct 07, 2017 at 04:33 Type of Consultation: id Exam/Review of Systems Vital Signs Vitals Vital Signs Date Time Temp Pulse Resp B/P Pulse Ox O2 Delivery O2 Flow Rate FiO2 10/13/17 12:38 73 20 97 21 10/13/17 11:09 98.2 147/79 10/13/17 08:00 Nasal Cannula 2.0 Intake and Output 10/12/17 10/12/17 10/13/17 15:00 23:00 07:00 Intake Total 50 ml 1740 ml 120 ml Balance 50 ml 1740 ml 120 ml Results Result Diagram: 10/09/17 0722 10/09/17 0724 Medications Medications Current Medications Albuterol (Ventolin Hfa) 2 puff Q4H PRN INH WHEEZING AND SOB Last administered on 10/08/17 19:08; Admin Dose 2 PUFF; Start 10/07/17 at 12:00 Montelukast Sodium (Singulair) 10 mg QHS PO Last administered on 10/12/17 20: 36; Admin Dose 10 MG; Start 10/07/17 at 21:00 Tiotropium [place] (Spiriva) 1 inh BID INH Last administered on 10/13/17 08:33 ; Admin Dose 1 INH; Start 10/07/17 at 21:00 Ondansetron HCl (Zofran Tab) 4 mg Q6H PRN PO NAUSEA AND/OR VOMITING; Start at 12:00 Acetaminophen (Tylenol Tab) 650 mg Q6H PRN PO PAIN LEVEL 1-3 OR FEVER Last administered on 10/12/17 09:26; Admin Dose 650 MG; Start 10/07/17 at 12:00 Docusate Sodium (Colace) 100 mg Q12H PRN PO CONSTIPATION; Start 10/07/17 at 12 :00 Magnesium Hydroxide (Milk Of Mag) 30 ml DAILY PRN PO CONSTIPATION; Start 10/07 at 12:00 Bisacodyl (Dulcolax) 5 mg DAILY PRN PO CONSTIPATION; Start 10/07/17 at 12:00 Enoxaparin Sodium 40 mg 40 mg DAILY SC ; Start 10/08/17 at 09:00 Potassium Chloride/Sodium Chloride (1/2 NS + KCl 20 Meq) 1,000 ml @ 20 mls/hr Q24H IV Last administered on 10/12/17 13:56; Admin Dose 20 MLS/HR; Start at 12:00 Acetaminophen/ Hydrocodone Bitart ([place] (5/325)) 1 tab BID PRN PO PAIN Last administered on 10/11/17 09:16; Admin Dose 1 TAB; Start 10/07/17 at 22:30 Guaifenesin/ Dextromethorphan (Robitussin Dm Liquid Cup) 10 ml Q4H PRN PO COUGH Last administered on 10/13/17 05:58; Admin Dose 10 ML; Start 10/08/17 at 17:00 Zolpidem Tartrate (Ambien) 5 mg HS PRN PO INSOMNIA Last administered on 21:19; Admin Dose 5 MG; Start 10/08/17 at 15:00 Pantoprazole 40 mg 40 mg DAILY@06 PO Last administered on 10/13/17 05:51; Admin Dose 40 MG; Start 10/09/17 at 06:00 Cefepime HCl (Maxipime 1gm/50 ml (Pmx)) 50 ml @ 100 mls/hr Q12 IVPB Last administered on 10/13/17 08:38; Admin Dose 100 MLS/HR; Start 10/09/17 at 21:00 Azithromycin (Zithromax) 500 mg DAILY PO Last administered on 10/13/17 08:22; Admin Dose 500 MG; Start 10/09/17 at 13:30 Methylprednisolone Sodium Succinate (Solu-Medrol) 40 mg BID IV Last administered on 10/13/17 08:23; Admin Dose 40 MG; Start 10/11/17 at 21:00 NATALI RIVERA NP Oct 13, 2017 13:57
--- NOTE | 2017-10-14 18:23 | QN ---
Documentation Comment [id number] ROMY MARAVILLA MD Oct 14, 2017 18:23
--- NOTE | 2017-10-15 06:54 | DS ---
DATE OF ADMISSION: 10/07/2017 DATE OF DISCHARGE: 10/13/2017 HOSPITAL COURSE: Patient was admitted with shortness of breath, had lung infiltrate. Patient was started on steroids, antibiotics, oxygen, bronchodilator, was seen by Dr. Diehl and Dr. candelaria in pulmonary consultation. CT scan of the chest was done and shows patient has right upper lobe and right middle lobe areas of consolidation, , a small right pleural effusion, asymmetry of the diaphragm _ The patient was cleared by the engagement quality consultant to be discharged home. DISCHARGE DIAGNOSES: Include: 1. Possibly community-acquired pneumonia in the setting of sirssyndrome. 2. Chronic obstructive pulmonary disease. 3. Bronchial asthma. 4. Leukocytosis, steroid. 5. Hyponatremia. 6. Mild anemia. DISCHARGE MEDICATIONS: To continue on: 1. Azithromycin. 2. Bisacodyl. 3. Doxycycline. 4. Prednisolone. 5. Albuterol. 6. Dulera. 7. Singulair. 8. Spiriva. The patient to follow with bari Good and pcp patient's primary care doctor as an outpatient. DISPOSITION: Patient is stable at the time of discharge. Dictated By: ROMY CARMEN/[place] Conf#: [id number] DID#: [id number]
== END 2017-10-13 15:00 | disposition home or self-care (01) | DRG 190 ==
LOC: E/R 01:36 → MS3 04:33 → TEL 20:53
PROVIDERS: ADMIT Internal Medicine Nephrology; ATTEND Internal Medicine Nephrology
DX: J44.0 Chronic obstructive pulmonary disease with (acute) lower respiratory infection (principal); J18.9 Pneumonia, unspecified organism; E87.1 Hypo-osmolality and hyponatremia; J44.1 Chronic obstructive pulmonary disease with (acute) exacerbation; R09.02 Hypoxemia; E87.6 Hypokalemia; I10 Essential (primary) hypertension; Z87.891 Personal history of nicotine dependence; J45.998 Other asthma; D64.9 Anemia, unspecified
CPT/HCPCS: 36415; 36600; 71010; 71250; 80048; 80053; 81001; 81003; 82803; 83605; 84484; 85025; 85610; 85730; 87040; 87086; 93005; 94640; 94644; 94664; 96365; 96366; 96368; 96375; J1940; C9113; J0692; J1650; J1885; J2543; J2930; J3370; J3480; J7030

== ENCOUNTER 2018-09-09 21:43 | Inpatient (IN) | END 2018-09-12 16:35 | disposition home or self-care (01) | DRG 192 ==